=== PATIENT | male | born 1940 | race Caucasian/White ===

== ENCOUNTER 2017-11-15 20:15 | Inpatient (IN) | payer MEDICARE, BC ==
--- NOTE | 2017-11-15 21:23 | EDM.PDOC ---
ED HPI GENERAL MEDICAL PROBLEM - General Chief Complaint: Lower Extremity Injury/Pain Stated Complaint: FALL, HIP INJURY Time Seen by Provider: 11/15/17 20:33 Source of Information: Reports: Patient, Family History Limitations: Reports: No Limitations - History of Present Illness INITIAL COMMENTS - FREE TEXT/NARRATIVE: Pt's states pt. was pulling a floor john backward today and the handle came out and pt. fell on left hip. Now pt. c/o left hip pain that is worsened with movement or weight bearing. History of left THR and previous left pelvic fracture. Onset: Today, Sudden Onset Date: 11/15/17 Onset Time: 19:00 Duration: Hour(s):, Constant Location: Reports: Lower Extremity, Left (left hip pain) Quality: Reports: Ache Severity: Mild Improves with: Reports: Rest Worsens with: Reports: Movement Associated Symptoms: Reports: No Other Symptoms Treatments WET MIXER: Reports: Other (see below) (none) Left Hip Pain Score (Numeric/FACES): 3 - Related Data Allergies Allergy/AdvReac Type Severity Reaction Status Date / Time No Known Allergies Allergy Verified 11/15/17 20:18 Home Meds: Home Meds Aspirin [Low Dose Aspirin EC] 81 mg PO DAILY 06/21/14 [History] Bisoprolol/Hydrochlorothiazide [Bisoprolol/HCTZ 5-6.25 MG] 1 tab PO DAILY [History] Cinnamon Bark [Cinnamon] 1,000 mg PO BID 06/21/14 [History] Folic Acid 0.4 mg PO DAILY 06/21/14 [History] Hydrochlorothiazide 25 mg PO DAILY 06/21/14 [History] Quinapril HCl 20 mg PO BID 06/21/14 [History] Simvastatin 10 mg PO DAILY 06/21/14 [History] amLODIPine [Norvasc] 5 mg PO DAILY 06/21/14 [History] cloNIDine [Catapres] 0.1 mg PO BEDTIME 06/21/14 [History] levETIRAcetam [Levetiracetam] 750 mg PO BID 06/21/14 [History] metFORMIN [Glucophage] 500 mg PO BID 06/21/14 [History] Insulin Detemir [Levemir Flextouch] 14 unit SQ QPM 11/15/17 [History] Cholecalciferol (Vitamin D3) [Vitamin D3] 5,000 units PO DAILY 11/16/17 [History ] Magnesium 250 mg PO DAILY 11/16/17 [History] Past Medical History Cardiovascular History: Reports: Hypertension Neurological History: Reports: CVA, Seizure Endocrine/Metabolic History: Reports: Diabetes, Type II Social & Family History - Family History Family Medical History: Noncontributory - Tobacco Use Smoking Status *Q: Unknown Ever Smoked Review of Systems - Review of Systems Review Of Systems: See Below Constitutional: Reports: Weakness Eyes: Reports: No Symptoms Ears: Reports: No Symptoms Nose: Reports: No Symptoms Mouth/Throat: Reports: No Symptoms Respiratory: Reports: No Symptoms Cardiovascular: Reports: No Symptoms GI/Abdominal: Reports: No Symptoms Genitourinary: Reports: No Symptoms Musculoskeletal: Reports: Leg Pain, Other (left hip pain) Neurological: Reports: No Symptoms Psychiatric: Reports: No Symptoms ED EXAM, GENERAL - Physical Exam Exam: See Below Exam Limited By: No Limitations General Appearance: Alert, WD/WN, No Apparent Distress Eye Exam: Bilateral Eye: EOMI, PERRL Nose: Normal Inspection, Normal Mucosa, No Blood Throat/Mouth: Normal Inspection, Normal Lips, Normal Teeth Head: Atraumatic, Normocephalic Neck: Normal Inspection, Supple, Non-Tender, Full Range of Motion Respiratory/Chest: No Respiratory Distress, Lungs Clear, Normal Breath Sounds, No Accessory Muscle Use, Chest Non-Tender Cardiovascular: Normal Peripheral Pulses, Regular Rate, Rhythm, No Edema, No JVD , No Murmur, No Rub GI/Abdominal: Normal Bowel Sounds, Soft, Non-Tender, No Organomegaly, No Distention, No Mass, Pelvis Stable (Male) Exam: Deferred Rectal (Males) Exam: Deferred Back Exam: Normal Inspection Extremities: Normal Inspection, Normal Capillary Refill, Pedal Edema, Limited Range of Motion (limited ability to fully straighten left hip; able to flex left hip; unable to fully extend left knee but states has been that way since CVA; neurovascular is intact; able to dorsiflex left foot), Other (no pelvic/ hip deformity on exam) Neurological: Alert, Oriented, CN II-XII Intact, Normal Cognition Psychiatric: Normal Affect, Normal Mood Skin Exam: Warm, Dry, Intact, Normal Color, No Rash Course - Vital Signs Last Recorded V/S: Last Vital Signs Temp 37.0 C 11/16/17 07:42 Pulse 94 11/16/17 07:42 Resp 20 11/16/17 07:42 BP 129/88 11/16/17 07:42 Pulse Ox 95 11/16/17 07:42 - Orders/Labs/Meds Orders: Active Orders 24 hr Category Date Time Status Vital Signs [RC] 0800,1600,0000 Care 11/15/17 22:23 Active Consistent Carbohydrate Diet (Diabetic) [Consistent Diet 11/16/17 Breakfast Active Carbohydrate Diet] [DIET] URINALYSIS W/MICROSCOPIC [UA W/MICROSCOPIC] [URIN] Stat Lab 11/15/17 21:00 Ordered Acetaminophen [Tylenol] Med 11/15/17 22:22 Active 650 mg PO Q6H PRN Enoxaparin [Lovenox] Med 11/16/17 08:00 Active 40 mg SUBCUT Q24H ENRRIQUE Hose [Antiembolic Hose] [OM.PC] Routine Oth 11/15/17 22:24 Ordered Code Status [Resuscitation Status] Stat Resus Stat 11/15/17 22:39 Ordered Medication Orders Acetaminophen (Tylenol) 650 mg PO Q6H PRN PRN Reason: Pain Aspirin (Halfprin) 81 mg PO DAILY [facility] Last Admin: 11/16/17 08:37 Dose: 81 mg Clonidine HCl (Catapres) 0.1 mg PO BEDTIME [facility] Enoxaparin Sodium (Lovenox) 40 mg SUBCUT Q24H [facility] Last Admin: 11/16/17 08:40 Dose: 40 mg Hydrochlorothiazide (Hydrochlorothiazide) 25 mg PO DAILY [facility] Last Admin: 11/16/17 08:37 Dose: 25 mg Insulin Detemir (Levemir) 14 unit SUBCUT BEDTIME [facility] Last Admin: 11/15/17 23:37 Dose: 14 units Magnesium Oxide (Magnesium Oxide) 250 mg PO DAILY [facility] Last Admin: 11/16/17 08:37 Dose: 250 mg [facility] Admin: 11/16/17 08:37 Dose: 500 mg Bisoprolol/Hydrochlorothiazide [Bisoprolol/Hctz 5-6 .25 MgOwn Med 1 tab PO DAILY [facility] Last Admin: 11/16/17 08:37 Dose: 1 tab Cinnamon Bark [ Cinnamon] 1,000 Mg Own Med 1,000 mg PO BID [facility] Last Admin: 11/16/17 08:37 Dose: 1,000 mg Folic Acid 400mcg (Own Med) 1 each PO DAILY [facility] Last Admin: 11/16/17 08:38 Dose: 1 each Amlodipine 5mgOwn (Med) 1 each PO DAILY [facility] Last Admin: 11/16/17 08:38 Dose: 1 each Cholecalciferol 5000 (UnitsOwn Med) 1 each PO DAILY [facility] Last Admin: 11/16/17 08:38 Dose: 1 each Quinapril 40mg Own (Med) 1 each PO BID [facility] Last Admin: 11/16/17 08:38 Dose: 1 each Levetiracetam 750 Mg (TabOwn Med) 1 each PO BID [facility] Last Admin: 11/16/17 08:38 Dose: 1 each Simvastatin (Zocor) 10 mg PO DAILY [facility] Last Admin: 11/16/17 08:38 Dose: 10 mg Labs: Laboratory Tests 11/15/17 11/15/17 11/15/17 Range/Units 21:00 21:10 21:10 WBC 12.7 H (5.0-10.0) 10^3/uL RBC 5.18 (4.50-6.00) 10^6/uL Hgb 15.3 (14.0-18.0) g/dL Hct 44.4 (40.0-54.0) % MCV 85.7 (82.0-94.0) fL MCH 29.5 (27.0-32.0) pg MCHC 34.5 (33.0-38.0) g/dL RDW Coeff of Alycia 12.9 (11.0-15.0) % Plt Count 233 (150-400) 10^3/uL Neut % (Auto) 81.9 (35-85) % Lymph % (Auto) 9.4 L (10-55) % [place] % (Auto) 7.7 (0-16) % Eos % (Auto) 0.8 (0-5) % Baso % (Auto) 0.2 (0-3) % Neut # (Auto) 10.41 H (1.80-7.00) 10^3/uL Lymph # (Auto) 1.20 (1.00-4.80) 10^3/uL [place] # (Auto) 0.98 H (0.00-0.80) 10^3/uL Eos # (Auto) 0.10 (0.00-0.45) 10^3/uL Baso # (Auto) 0.03 10^3/uL Sodium 142 (136-145) mEq/L Potassium 3.4 L (3.5-5.0) mEq/L Chloride 102 (98-106) mEq/L Carbon Dioxide 28 (21-32) mmol/L BUN 14 (7-18) mg/dL Creatinine 0.9 (0.7-1.3) mg/dL Est Cr Clr Drug Dosing 87.07 mL/min Estimated GFR (MDRD) > 60 (>=60) mL/min Glucose 195 H D (75-99) mg/dL Calcium 9.1 (8.4-10.1) mg/dL Total Bilirubin 0.6 (0.0-1.0) mg/dL AST 24 (15-37) U/L ALT 29 (12-78) U/L Alkaline Phosphatase 108 (46-116) U/L Total Protein 7.2 (6.4-8.2) g/dL Albumin 3.6 (3.4-5.0) g/dL Urine Color Yellow (YELLOW) Urine Appearance Clear (CLEAR) Urine pH 7.0 (4.5-8.0) Ur Specific [place] 1.025 H (1.003-1.020) Urine Protein 100 H (NEGATIVE) mg/dL Urine Glucose (UA) 250 H (NEGATIVE) mg/dL Urine Ketones 15 H (NEGATIVE) mg/dL Urine Occult Blood Trace-intact H (NEGATIVE) Urine Nitrite Negative (NEGATIVE) Urine Bilirubin Negative (NEGATIVE) Urine Urobilinogen 0.2 (0.2-1.0) EU/dL Ur Leukocyte Esterase Negative (NEGATIVE) Urine RBC 0-5 (0-5) /HPF Urine WBC 0-5 (0-5) /HPF Ur Squamous Epith Cells Occasional H (NOT SEEN) /HPF Urine Bacteria Rare (NOT SEEN) /HPF Meds: Medications Generic Name Dose Route Start Last Admin Trade Name Freq PRN Reason Stop Dose Admin Acetaminophen 650 mg 11/15/17 22:22 Tylenol PO Q6H PRN Pain Aspirin 81 mg 11/16/17 08:00 11/16/17 08:37 Halfprin PO 81 mg DAILY [facility] Administration Clonidine HCl 0.1 mg 11/16/17 20:00 Catapres PO BEDTIME [facility] Enoxaparin Sodium 40 mg 11/16/17 08:00 11/16/17 08:40 Lovenox SUBCUT 40 mg Q24H [facility] Administration Hydrochlorothiazide 25 mg 11/16/17 08:00 11/16/17 08:37 Hydrochlorothiazide PO 25 mg DAILY [facility] Administration Insulin Detemir 14 unit 11/15/17 22:56 11/15/17 23:37 Levemir SUBCUT 14 units BEDTIME [facility] Administration Magnesium Oxide 250 mg 11/16/17 08:00 11/16/17 08:37 Magnesium Oxide PO 250 mg DAILY [facility] Administration Metformin HCl 500 mg 11/16/17 08:00 11/16/17 08:37 Glucophage PO 500 mg BIDMEALS [facility] Administration Bisoprolol/ 1 tab 11/16/17 08:00 11/16/17 08:37 Hydrochlorothiazide PO 1 tab [Bisoprolol/Hctz 5-6 DAILY [facility] Administration .25 MgOwn Med Cinnamon Bark [ 1,000 mg 11/16/17 08:00 11/16/17 08:37 Cinnamon] 1,000 Mg PO 1,000 mg Own Med BID [facility] Administration Folic Acid 400mcg 1 each 11/16/17 08:00 11/16/17 08:38 Own Med PO 1 each DAILY [facility] Administration Amlodipine 5mgOwn 1 each 11/16/17 08:00 11/16/17 08:38 Med PO 1 each DAILY [facility] Administration Cholecalciferol 5000 1 each 11/16/17 08:00 11/16/17 08:38 UnitsOwn Med PO 1 each DAILY [facility] Administration Quinapril 40mg Own 1 each 11/16/17 08:00 11/16/17 08:38 Med PO 1 each BID [facility] Administration Levetiracetam 750 Mg 1 each 11/16/17 08:00 11/16/17 08:38 TabOwn Med PO 1 each BID [facility] Administration Simvastatin 10 mg 11/16/17 08:00 11/16/17 08:38 Zocor PO 10 mg DAILY [facility] Administration Discontinued Medications Generic Name Dose Route Start Last Admin Trade Name Evangelistaq PRN Reason Stop Dose Admin Amlodipine 5mgOwn 5 each 11/16/17 08:00 Med PO DAILY [facility] Cholecalciferol 5000 5,000 each 11/16/17 08:00 UnitsOwn Med PO DAILY [facility] Folic Acid 400mcg 0.4 each 11/16/17 08:00 Own Med PO DAILY [facility] Levetiracetam 750 Mg 750 each 11/16/17 08:00 TabOwn Med PO BID [facility] Quinapril 40mg Own 20 each 11/16/17 08:00 Med PO BID [facility] - Radiology Interpretation Free Text/Narrative:: Acute nondisplaced fractures involving superior and inferior pubic rami on the left; unremarkable left hip arthroplasty. Alignment remains anatomic. - Re-Assessments/Exams Free Text/Narrative Re-Assessment/Exam: Consulted with Dr. Dominguez, orthopedics via phone and discussed case. Dr. Dominguez states pt. will not need surgery but recommends PWB on left LE and outpatient follow up in 2 weeks. 11/15/17 22:15 Departure - Departure Time of Disposition: 22:40 Disposition: Refer to Observation Condition: Good Clinical Impression: Fracture of pelvis, HTN, Essential hypertension, Diabetes mellitus, Hypokalemia - Discharge Information - Problem List & Annotations (1) Pelvic fracture SNOMED Code(s): 57599252 Code(s): S32.9XXA - FRACTURE OF UNSP PARTS OF LUMBOSACRAL SPINE AND PELVIS, INIT Status: Acute Current Visit: Yes Onset Date: ~11/15/17 Qualifiers: Encounter type: initial encounter Pelvic bone location: pubis Sublocation of pubis: unspecified portion of pubis Fracture type: closed Laterality: left Qualified Code(s): S32.502A - Unspecified fracture of left pubis, initial encounter for closed fracture (2) HTN (hypertension) SNOMED Code(s): 26915834 Code(s): I10 - ESSENTIAL (PRIMARY) HYPERTENSION Status: Acute Priority: High Current Visit: Yes (3) Diabetes mellitus SNOMED Code(s): 32553105 Code(s): E11.9 - TYPE 2 DIABETES MELLITUS WITHOUT COMPLICATIONS Status: Chronic Priority: High Current Visit: Yes - Problem List Review Problem List Initiated/Reviewed/Updated: Yes - My Orders Last 24 Hours: My Active Orders 11/15/17 21:00 URINALYSIS W/MICROSCOPIC [UA W/MICROSCOPIC] [URIN] Stat 11/15/17 22:22 Acetaminophen [Tylenol] 650 mg PO Q6H PRN 11/15/17 22:23 Vital Signs [RC] 0800,1600,0000 11/15/17 22:24 ENRRIQUE Hose [Antiembolic Hose] [OM.PC] Routine 11/15/17 22:39 Code Status [Resuscitation Status] Stat 11/16/17 08:00 Enoxaparin [Lovenox] 40 mg SUBCUT Q24H 11/16/17 Breakfast Consistent Carbohydrate Diet (Diabetic) [Consistent Carbohydrate Diet] [DIET] - Assessment/Plan Admission H&P: Please use this note as an admission H&P Last 24 Hours: My Active Orders 11/15/17 21:00 URINALYSIS W/MICROSCOPIC [UA W/MICROSCOPIC] [URIN] Stat 11/15/17 22:22 Acetaminophen [Tylenol] 650 mg PO Q6H PRN 11/15/17 22:23 Vital Signs [RC] 0800,1600,0000 11/15/17 22:24 ENRRIQUE Hose [Antiembolic Hose] [OM.PC] Routine 11/15/17 22:39 Code Status [Resuscitation Status] Stat 11/16/17 08:00 Enoxaparin [Lovenox] 40 mg SUBCUT Q24H 11/16/17 Breakfast Consistent Carbohydrate Diet (Diabetic) [Consistent Carbohydrate Diet] [DIET] Assessment:: Acute nondisplaced fracture of superior and inferior pubic rami on the left, impaired mobility, gait and ADL's --consult PT, OT --PWB on left LE --pt. will likely need admission to obervation and then swing bed or SNF due to impaired mobility, gait, and ADL's. Plan: Admit to observation Patient and refused transfer to ortho at this time. Patient refuses pain medication. Will reevaluate and discuss further plans tomorrow. Acute nondisplaced fracture of superior and inferior pubic rami on the left, impaired mobility, gait and ADL's --consult PT --PWB on left LE HTN --continue home meds, monitor BP DM --continue home meds, monitor blood sugar DVT prophy: --Lovenox 40 mg subq daily
[2017-11-15 21:29] LABS: CHLORIDE,CL 102 mEq/L (98-106); SODIUM,NA 142 mEq/L (136-145)
[2017-11-15] MEDS ORDERED: Acetaminophen 325 MG Tab PO PRN (22:22)
[2017-11-15] MEDS: Insulin Detemir 100 Units/ML 3 ML Pen SUBCUT SCH (23:37)
[2017-11-16] MEDS ORDERED: CHOLECALCIFEROL 5000 UNIT PO SCH ×2 (08:00)
[2017-11-16] MEDS ORDERED: LEVETIRACETAM 750 MG PO SCH ×2 (08:00)
[2017-11-16] MEDS ORDERED: QUINAPRIL 40 MG PO SCH ×2 (08:00)
[2017-11-16] MEDS ORDERED: FOLIC ACID 400 MCG PO SCH ×2 (08:00)
[2017-11-16] MEDS ORDERED: AMLODIPINE 5 MG PO SCH ×2 (08:00)
[2017-11-16 08:07] LABS: CHLORIDE,CL 104 mEq/L (98-106); SODIUM,NA 141 mEq/L (136-145)
[2017-11-16] MEDS: BISOPROLOL PO SCH (08:37)
[2017-11-16] MEDS: Hydrochlorothiazide 25 MG Tab PO SCH (08:37)
[2017-11-16] MEDS: CINNAMON BARK 1000 MG PO SCH ×2 (08:37→20:03)
[2017-11-16] MEDS: metFORMIN 500 MG Tab PO SCH ×2 (08:37→17:24)
[2017-11-16] MEDS: HYDROCHLOROTHIAZIDE PO SCH (08:37)
[2017-11-16] MEDS: Simvastatin 10 MG Tab PO SCH (08:38)
[2017-11-16] MEDS: Enoxaparin 40 MG/0.4 ML Syringe SUBCUT SCH (08:40)
--- NOTE | 2017-11-16 14:06 | PCM.PN ---
- General Info Date of Service: 11/16/17 Admission Dx/Problem (Free Text): Vulnerable adult due to PWB and impaired mobility/ gait/ ADL's, and transfers. At risk for falls/ injury and skin breakdown. Left side pelvic fracture, impaired mobility/ gait/ ADL's and transfers. Subjective Update: 77 year male admitted to hospital after falling and having a left side pelvic fracture last night. Denies any current pain. Pt. transferred from bed to chair with max assist x 3. Discussed at length patient going to SNF for physical therapy versus going home with home health and PT. Functional Status: Reports: Pain Controlled, Tolerating Diet, Urinating Pain Score: 0 - Review of Systems General: Reports: No Symptoms HEENT: Reports: No Symptoms Pulmonary: Reports: No Symptoms Cardiovascular: Reports: No Symptoms Gastrointestinal: Reports: No Symptoms Genitourinary: Reports: No Symptoms Musculoskeletal: Reports: No Symptoms Skin: Reports: No Symptoms Neurological: Reports: No Symptoms Psychiatric: Reports: No Symptoms - Patient Data Vitals - Most Recent: Last Vital Signs Temp 37.0 C 11/16/17 07:42 Pulse 94 11/16/17 07:42 Resp 20 11/16/17 07:42 BP 129/88 11/16/17 07:42 Pulse Ox 95 11/16/17 07:42 Weight - Most Recent: 96.978 kg Lab Results Last 24 Hours: Laboratory Results - last 24 hr 11/15/17 11/15/17 11/15/17 Range/Units 21:00 21:10 21:10 WBC 12.7 H (5.0-10.0) 10^3/uL RBC 5.18 (4.50-6.00) 10^6/uL Hgb 15.3 (14.0-18.0) g/dL Hct 44.4 (40.0-54.0) % MCV 85.7 (82.0-94.0) fL MCH 29.5 (27.0-32.0) pg MCHC 34.5 (33.0-38.0) g/dL RDW Coeff of Alycia 12.9 (11.0-15.0) % Plt Count 233 (150-400) 10^3/uL Neut % (Auto) 81.9 (35-85) % Lymph % (Auto) 9.4 L (10-55) % [place] % (Auto) 7.7 (0-16) % Eos % (Auto) 0.8 (0-5) % Baso % (Auto) 0.2 (0-3) % Neut # (Auto) 10.41 H (1.80-7.00) 10^3/uL Lymph # (Auto) 1.20 (1.00-4.80) 10^3/uL [place] # (Auto) 0.98 H (0.00-0.80) 10^3/uL Eos # (Auto) 0.10 (0.00-0.45) 10^3/uL Baso # (Auto) 0.03 10^3/uL PT (9.7-12.3) SEC INR (0.92-1.18) APTT (23.2-32.3) SEC Sodium 142 (136-145) mEq/L Potassium 3.4 L (3.5-5.0) mEq/L Chloride 102 (98-106) mEq/L Carbon Dioxide 28 (21-32) mmol/L BUN 14 (7-18) mg/dL Creatinine 0.9 (0.7-1.3) mg/dL Est Cr Clr Drug Dosing 87.07 mL/min Estimated GFR (MDRD) > 60 (>=60) mL/min Glucose 195 H D (75-99) mg/dL Calcium 9.1 (8.4-10.1) mg/dL Total Bilirubin 0.6 (0.0-1.0) mg/dL AST 24 (15-37) U/L ALT 29 (12-78) U/L Alkaline Phosphatase 108 (46-116) U/L Total Protein 7.2 (6.4-8.2) g/dL Albumin 3.6 (3.4-5.0) g/dL Urine Color Yellow (YELLOW) Urine Appearance Clear (CLEAR) Urine pH 7.0 (4.5-8.0) Ur Specific [place] 1.025 H (1.003-1.020) Urine Protein 100 H (NEGATIVE) mg/dL Urine Glucose (UA) 250 H (NEGATIVE) mg/dL Urine Ketones 15 H (NEGATIVE) mg/dL Urine Occult Blood Trace-intact H (NEGATIVE) Urine Nitrite Negative (NEGATIVE) Urine Bilirubin Negative (NEGATIVE) Urine Urobilinogen 0.2 (0.2-1.0) EU/dL Ur Leukocyte Esterase Negative (NEGATIVE) Urine RBC 0-5 (0-5) /HPF Urine WBC 0-5 (0-5) /HPF Ur Squamous Epith Cells Occasional H (NOT SEEN) /HPF Urine Bacteria Rare (NOT SEEN) /HPF 11/16/17 11/16/17 11/16/17 Range/Units 07:50 07:50 07:50 WBC 10.3 H (5.0-10.0) 10^3/uL RBC 4.59 (4.50-6.00) 10^6/uL Hgb 13.5 L (14.0-18.0) g/dL Hct 39.7 L (40.0-54.0) % MCV 86.5 (82.0-94.0) fL MCH 29.4 (27.0-32.0) pg MCHC 34.0 (33.0-38.0) g/dL RDW Coeff of Alycia 12.8 (11.0-15.0) % Plt Count 216 (150-400) 10^3/uL Neut % (Auto) 76.0 (35-85) % Lymph % (Auto) 13.6 (10-55) % [place] % (Auto) 8.7 (0-16) % Eos % (Auto) 1.5 (0-5) % Baso % (Auto) 0.2 (0-3) % Neut # (Auto) 7.85 H (1.80-7.00) 10^3/uL Lymph # (Auto) 1.41 (1.00-4.80) 10^3/uL [place] # (Auto) 0.90 H (0.00-0.80) 10^3/uL Eos # (Auto) 0.15 (0.00-0.45) 10^3/uL Baso # (Auto) 0.02 10^3/uL PT 10.4 (9.7-12.3) SEC INR 1.00 (0.92-1.18) APTT 28.5 (23.2-32.3) SEC Sodium 141 (136-145) mEq/L Potassium 3.4 L (3.5-5.0) mEq/L Chloride 104 (98-106) mEq/L Carbon Dioxide 27 (21-32) mmol/L BUN 16 (7-18) mg/dL Creatinine 0.8 (0.7-1.3) mg/dL Est Cr Clr Drug Dosing 97.95 mL/min Estimated GFR (MDRD) > 60 (>=60) mL/min Glucose 173 H (75-99) mg/dL Calcium 8.8 (8.4-10.1) mg/dL Total Bilirubin (0.0-1.0) mg/dL AST (15-37) U/L ALT (12-78) U/L Alkaline Phosphatase (46-116) U/L Total Protein (6.4-8.2) g/dL Albumin (3.4-5.0) g/dL Urine Color (YELLOW) Urine Appearance (CLEAR) Urine pH (4.5-8.0) Ur Specific [place] (1.003-1.020) Urine Protein (NEGATIVE) mg/dL Urine Glucose (UA) (NEGATIVE) mg/dL Urine Ketones (NEGATIVE) mg/dL Urine Occult Blood (NEGATIVE) Urine Nitrite (NEGATIVE) Urine Bilirubin (NEGATIVE) Urine Urobilinogen (0.2-1.0) EU/dL Ur Leukocyte Esterase (NEGATIVE) Urine RBC (0-5) /HPF Urine WBC (0-5) /HPF Ur Squamous Epith Cells (NOT SEEN) /HPF Urine Bacteria (NOT SEEN) /HPF Med Orders - Current: Current Medications Acetaminophen (Tylenol) 650 mg PO Q6H PRN PRN Reason: Pain Aspirin (Halfprin) 81 mg PO DAILY [facility] Last Admin: 11/16/17 08:37 Dose: 81 mg Clonidine HCl (Catapres) 0.1 mg PO BEDTIME [facility] Enoxaparin Sodium (Lovenox) 40 mg SUBCUT Q24H [facility] Last Admin: 11/16/17 08:40 Dose: 40 mg Hydrochlorothiazide (Hydrochlorothiazide) 25 mg PO DAILY [facility] Last Admin: 11/16/17 08:37 Dose: 25 mg Insulin Detemir (Levemir) 14 unit SUBCUT BEDTIME [facility] Last Admin: 11/15/17 23:37 Dose: 14 units Magnesium Oxide (Magnesium Oxide) 250 mg PO DAILY [facility] Last Admin: 11/16/17 08:37 Dose: 250 mg Metformin HCl (Glucophage) 500 mg PO BIDMEALS [facility] Last Admin: 11/16/17 08:37 Dose: 500 mg Bisoprolol/Hydrochlorothiazide [Bisoprolol/Hctz 5-6 .25 MgOwn Med 1 tab PO DAILY [facility] Last Admin: 11/16/17 08:37 Dose: 1 tab Cinnamon Bark [ Cinnamon] 1,000 Mg Own Med 1,000 mg PO BID [facility] Last Admin: 11/16/17 08:37 Dose: 1,000 mg Folic Acid 400mcg (Own Med) 1 each PO DAILY [facility] Last Admin: 11/16/17 08:38 Dose: 1 each Amlodipine 5mgOwn (Med) 1 each PO DAILY [facility] Last Admin: 11/16/17 08:38 Dose: 1 each Cholecalciferol 5000 (UnitsOwn Med) 1 each PO DAILY [facility] Last Admin: 11/16/17 08:38 Dose: 1 each Quinapril 40mg Own (Med) 1 each PO BID [facility] Last Admin: 11/16/17 08:38 Dose: 1 each Levetiracetam 750 Mg (TabOwn Med) 1 each PO BID [facility] Last Admin: 11/16/17 08:38 Dose: 1 each Simvastatin (Zocor) 10 mg PO DAILY [facility] Last Admin: 11/16/17 08:38 Dose: 10 mg Discontinued Medications Amlodipine 5mgOwn (Med) 5 each PO DAILY [facility] Cholecalciferol 5000 (UnitsOwn Med) 5,000 each PO DAILY [facility] Folic Acid 400mcg (Own Med) 0.4 each PO DAILY [facility] Levetiracetam 750 Mg (TabOwn Med) 750 each PO BID [facility] Quinapril 40mg Own (Med) 20 each PO BID [facility] - Exam Quality Assessment: DVT Prophylaxis General: Alert, Oriented, Cooperative HEENT: Pupils Equal, Pupils Reactive, EOMI, Mucous Membr. Moist/[place] Neck: Supple, Trachea Midline Lungs: Clear to Auscultation, Normal Respiratory Effort Cardiovascular: Regular Rate, Regular Rhythm, No Murmurs GI/Abdominal Exam: Normal Bowel Sounds, Soft, Non-Tender, No Organomegaly, No Distention, No Mass (Male) Exam: Deferred Back Exam: Normal Inspection Extremities: Normal Inspection, No Pedal Edema, Limited Range of Motion ( decreased AROM left LE; able to dorsiflex foot and flex hip minimally. Unable to ambulate), Other (requires max assist x 3 for transfers; unable to ambulate. decreased AROM and strength.) Skin: Warm, Dry, Intact Neurological: No New Focal Deficit Psy/Mental Status: Alert, Normal Affect, Normal Mood - Problem List & Annotations (1) Pelvic fracture SNOMED Code(s): 87378183 Code(s): S32.9XXA - FRACTURE OF UNSP PARTS OF LUMBOSACRAL SPINE AND PELVIS, INIT Status: Acute Current Visit: Yes Onset Date: ~11/15/17 Qualifiers: Encounter type: initial encounter Pelvic bone location: pubis Sublocation of pubis: unspecified portion of pubis Fracture type: closed Laterality: left Qualified Code(s): S32.502A - Unspecified fracture of left pubis, initial encounter for closed fracture (2) HTN (hypertension) SNOMED Code(s): 69886687 Code(s): I10 - ESSENTIAL (PRIMARY) HYPERTENSION Status: Acute Priority: High Current Visit: Yes (3) Diabetes mellitus SNOMED Code(s): 66468300 Code(s): E11.9 - TYPE 2 DIABETES MELLITUS WITHOUT COMPLICATIONS Status: Chronic Priority: High Current Visit: Yes - Problem List Review Problem List Initiated/Reviewed/Updated: Yes - My Orders Last 24 Hours: My Active Orders 11/15/17 21:00 URINALYSIS W/MICROSCOPIC [UA W/MICROSCOPIC] [URIN] Stat 11/15/17 22:22 Acetaminophen [Tylenol] 650 mg PO Q6H PRN 11/15/17 22:23 Vital Signs [RC] 0800,1600,0000 11/15/17 22:24 ENRRIQUE Hose [Antiembolic Hose] [OM.PC] Routine 11/15/17 22:39 Code Status [Resuscitation Status] Stat 11/15/17 22:47 Weight bearing status [OM.PC] Routine 11/15/17 22:48 PT Evaluation and Treatment [CONS] Routine 11/15/17 22:56 Insulin Detemir [Levemir] 14 unit SUBCUT BEDTIME 11/16/17 06:40 Blood Glucose Check, Bedside [RC] 0730,1700 11/16/17 08:00 Aspirin [Halfprin] 81 mg PO DAILY Bisoprolol/Hydrochlorothiazide [Bisoprolol/HCTZ 5-6.25 MG] 1 tab PO DAILY Cinnamon Bark [Cinnamon] 1,000 mg PO BID Enoxaparin [Lovenox] 40 mg SUBCUT Q24H Hydrochlorothiazide 25 mg PO DAILY Magnesium Oxide 250 mg PO DAILY Non-Formulary Medication [NF Drug] 1 each PO BID Non-Formulary Medication [NF Drug] 1 each PO BID Non-Formulary Medication [NF Drug] 1 each PO DAILY Non-Formulary Medication [NF Drug] 1 each PO DAILY Non-Formulary Medication [NF Drug] 1 each PO DAILY Simvastatin [Zocor] 10 mg PO DAILY metFORMIN [Glucophage] 500 mg PO BIDMEALS 11/16/17 20:00 cloNIDine [Catapres] 0.1 mg PO BEDTIME 11/16/17 Breakfast Consistent Carbohydrate Diet (Diabetic) [Consistent Carbohydrate Diet] [DIET] - Assessment Assessment:: Vulnerable adult secondary to impaired mobility/ gait/ ADL's and s/p CVA. Risk for falls. Left superior and inferior pubic rami fracture, PWB. s/p CVA with mobility, gait, and balance/ coordination deficits. HTN DM HL - Plan Plan:: Pt. inpatient and will require PT for mobility, gait, and transfers. Pt. is at risk for falls/ injury. swing bed versus SNF with PT. Case management and dispo planning pending.
[2017-11-16] MEDS: cloNIDine 0.1 MG Tab PO SCH (20:01)
[2017-11-16] MEDS: levETIRAcetam 500 MG Tab PO SCH (20:02)
[2017-11-16] MEDS: Insulin Detemir 100 Units/ML 3 ML Pen SUBCUT SCH (20:03)
[2017-11-17] MEDS: Enoxaparin 40 MG/0.4 ML Syringe SUBCUT SCH (07:44)
[2017-11-17] MEDS: Cholecalciferol (Vitamin D3) 1,000 Unit Tab PO SCH (07:44)
[2017-11-17] MEDS: levETIRAcetam 500 MG Tab PO SCH ×2 (07:44→19:42)
[2017-11-17] MEDS: Folic Acid 1 MG Tab PO SCH (07:45)
[2017-11-17] MEDS: Simvastatin 10 MG Tab PO SCH (07:45)
[2017-11-17] MEDS: amLODIPine 2.5 MG Tab PO SCH (07:45)
[2017-11-17] MEDS: metFORMIN 500 MG Tab PO SCH ×2 (07:46→17:34)
[2017-11-17] MEDS: Hydrochlorothiazide 25 MG Tab PO SCH (07:46)
[2017-11-17] MEDS: BISOPROLOL PO SCH (07:47)
[2017-11-17] MEDS: HYDROCHLOROTHIAZIDE PO SCH (07:47)
[2017-11-17] MEDS: CINNAMON BARK 1000 MG PO SCH ×2 (07:49→19:41)
[2017-11-17] MEDS: Lisinopril 20 MG Tab PO SCH (07:50)
--- NOTE | 2017-11-17 11:46 | PN ---
DATE: 11/17/2017 S: Long Van is in with a pelvic ring fracture, inferior and superior rami on the left side I believe. On examination, the patient is very comfortable, poor range of motion because of the stroke. ASSESSMENT: PELVIC FRACTURE. P: Continue physical therapy. Pain control if needed. SHANNON/ABDULKADIR /[id number]
[2017-11-17] MEDS: cloNIDine 0.1 MG Tab PO SCH (19:41)
[2017-11-17] MEDS: Insulin Detemir 100 Units/ML 3 ML Pen SUBCUT SCH (19:43)
[2017-11-18] MEDS: CINNAMON BARK 1000 MG PO SCH ×2 (07:22→19:27)
[2017-11-18] MEDS: Folic Acid 1 MG Tab PO SCH (07:23)
[2017-11-18] MEDS: metFORMIN 500 MG Tab PO SCH ×2 (07:23→17:20)
[2017-11-18] MEDS: Hydrochlorothiazide 25 MG Tab PO SCH (07:24)
[2017-11-18] MEDS: levETIRAcetam 500 MG Tab PO SCH ×2 (07:25→19:27)
[2017-11-18] MEDS: Enoxaparin 40 MG/0.4 ML Syringe SUBCUT SCH (07:26)
[2017-11-18] MEDS: amLODIPine 2.5 MG Tab PO SCH (07:27)
[2017-11-18] MEDS: Cholecalciferol (Vitamin D3) 1,000 Unit Tab PO SCH (07:28)
[2017-11-18] MEDS: Simvastatin 10 MG Tab PO SCH (07:28)
[2017-11-18] MEDS: Lisinopril 20 MG Tab PO SCH (07:28)
[2017-11-18] MEDS: HYDROCHLOROTHIAZIDE PO SCH (07:30)
[2017-11-18] MEDS: BISOPROLOL PO SCH (07:30)
--- NOTE | 2017-11-18 08:12 | PCM.PN ---
- General Info Date of Service: 11/18/17 Admission Dx/Problem (Free Text): Vulnerable adult due to PWB and impaired mobility/ gait/ ADL's, and transfers. At risk for falls/ injury and skin breakdown. Left side pelvic fracture, impaired mobility/ gait/ ADL's and transfers. Subjective Update: Patient reports he is feeling well. He reports his pain is well controlled. He is requiring assistance with the EZ stand for transfers. Nursing staff reports he does get anxious with transfers. He does report that he has not had a BM since admission on Friday. Patient does not offer any complaints this morning. Functional Status: Reports: Pain Controlled, Tolerating Diet, Ambulating, Urinating. Denies: New Symptoms - Review of Systems General: Reports: Weakness Pulmonary: Reports: No Symptoms Cardiovascular: Reports: No Symptoms Gastrointestinal: Reports: Constipation. Denies: Abdominal Pain, Decreased Appetite, Diarrhea, Nausea, Vomiting Genitourinary: Reports: No Symptoms Musculoskeletal: Reports: Joint Pain Skin: Reports: No Symptoms Neurological: Reports: No Symptoms Psychiatric: Reports: No Symptoms - Patient Data Vitals - Most Recent: Last Vital Signs Temp 97.4 F 11/18/17 07:36 Pulse 84 11/18/17 07:36 Resp 20 11/18/17 07:36 BP 167/99 H 11/18/17 07:36 Pulse Ox 96 11/18/17 07:36 Weight - Most Recent: 213 lb 12.8 oz Lab Results Last 24 Hours: Laboratory Results - last 24 hr 11/17/17 11/17/17 11/18/17 Range/Units 11:41 16:58 07:21 POC Glucose 266 H 265 H 180 H (75-105) mg/dl Med Orders - Current: Current Medications Acetaminophen (Tylenol) 650 mg PO Q6H PRN PRN Reason: Pain Amlodipine Besylate (Norvasc) 5 mg PO DAILY [facility] Last Admin: 11/18/17 07:27 Dose: 5 mg Aspirin (Halfprin) 81 mg PO DAILY [facility] Last Admin: 11/18/17 07:24 Dose: 81 mg Cholecalciferol (Vitamin D3) 5,000 units PO DAILY [facility] Last Admin: 11/18/17 07:28 Dose: 5,000 units Clonidine HCl (Catapres) 0.1 mg PO BEDTIME [facility] Last Admin: 11/17/17 19:41 Dose: 0.1 mg Enoxaparin Sodium (Lovenox) 40 mg SUBCUT Q24H [facility] Last Admin: 11/18/17 07:26 Dose: 40 mg Folic Acid (Folic Acid) 0.5 mg PO DAILY [facility] Last Admin: 11/18/17 07:23 Dose: 0.5 mg Hydrochlorothiazide (Hydrochlorothiazide) 25 mg PO DAILY [facility] Last Admin: 11/18/17 07:24 Dose: 25 mg Insulin Detemir (Levemir) 14 unit SUBCUT BEDTIME [facility] Last Admin: 11/17/17 19:43 Dose: 14 units Levetiracetam (Keppra) 750 mg PO BID [facility] Last Admin: 11/18/17 07:25 Dose: 750 mg Lisinopril (Prinivil) 20 mg PO DAILY [facility] Last Admin: 11/18/17 07:28 Dose: 20 mg Magnesium Oxide (Magnesium Oxide) 250 mg PO DAILY [facility] Last Admin: 11/18/17 07:27 Dose: 250 mg Metformin HCl (Glucophage) 500 mg PO BIDMEALS [facility] Last Admin: 11/18/17 07:23 Dose: 500 mg Bisoprolol/Hydrochlorothiazide [Bisoprolol/Hctz 5-6 .25 MgOwn Med 1 tab PO DAILY [facility] Last Admin: 11/18/17 07:30 Dose: 1 tab Cinnamon Bark [ Cinnamon] 1,000 Mg Own Med 1,000 mg PO BID [facility] Last Admin: 11/18/17 07:22 Dose: 1,000 mg Simvastatin (Zocor) 10 mg PO DAILY [facility] Last Admin: 11/18/17 07:28 Dose: 10 mg Discontinued Medications Amlodipine 5mgOwn (Med) 5 each PO DAILY [facility] Cholecalciferol 5000 (UnitsOwn Med) 5,000 each PO DAILY [facility] Folic Acid 400mcg (Own Med) 0.4 each PO DAILY [facility] Levetiracetam 750 Mg (TabOwn Med) 750 each PO BID [facility] Quinapril 40mg Own (Med) 20 each PO BID [facility] Folic Acid 400mcg (Own Med) 1 each PO DAILY [facility] Last Admin: 11/16/17 08:38 Dose: 1 each Amlodipine 5mgOwn (Med) 1 each PO DAILY [facility] Last Admin: 11/16/17 08:38 Dose: 1 each Cholecalciferol 5000 (UnitsOwn Med) 1 each PO DAILY [facility] Last Admin: 11/16/17 08:38 Dose: 1 each Quinapril 40mg Own (Med) 1 each PO BID [facility] Last Admin: 11/16/17 08:38 Dose: 1 each Levetiracetam 750 Mg (TabOwn Med) 1 each PO BID [facility] Last Admin: 11/16/17 08:38 Dose: 1 each - Exam General: Alert, Oriented, No Acute Distress Neck: Supple Lungs: Clear to Auscultation, Normal Respiratory Effort Cardiovascular: Regular Rate, Regular Rhythm GI/Abdominal Exam: Normal Bowel Sounds, Soft, Non-Tender, No Organomegaly, No Distention, No Abnormal Bruit, No Mass, Pelvis Stable Extremities: Normal Inspection, Normal Range of Motion (except flaccid RUE), Non -Tender, No Pedal Edema, Normal Capillary Refill Skin: Warm, Dry, Intact Neurological: No New Focal Deficit Psy/Mental Status: Alert, Normal Affect, Normal Mood - Problem List & Annotations (1) History of CVA (cerebrovascular accident) SNOMED Code(s): 301581899 Code(s): Z86.73 - PRSNL HX OF TIA (TIA), AND CEREB INFRC W/O RESID DEFICITS Status: Acute Current Visit: Yes (2) Adult failure to thrive SNOMED Code(s): 288734053 Code(s): R62.7 - ADULT FAILURE TO THRIVE Status: Acute Current Visit: Yes (3) Fracture of pelvis SNOMED Code(s): 22486754 Code(s): S32.9XXA - FRACTURE OF UNSP PARTS OF LUMBOSACRAL SPINE AND PELVIS, INIT Status: Acute Current Visit: Yes (4) HTN (hypertension) SNOMED Code(s): 74129582 Code(s): I10 - ESSENTIAL (PRIMARY) HYPERTENSION Status: Acute Priority: High Current Visit: Yes (5) Diabetes mellitus SNOMED Code(s): 59448676 Code(s): E11.9 - TYPE 2 DIABETES MELLITUS WITHOUT COMPLICATIONS Status: Chronic Priority: High Current Visit: Yes - Problem List Review Problem List Initiated/Reviewed/Updated: Yes - Assessment Assessment:: Vulnerable adult secondary to impaired mobility/ gait/ ADL's and s/p CVA. Risk for falls. Left superior and inferior pubic rami fracture, PWB. s/p CVA with mobility, gait, and balance/ coordination deficits. HTN Diabetes mellitus type II Hyperlipidemia - Plan Plan:: Vulnerable Adult, Superior and Inferior Pubic Rami Fracture, History of CVA Patient will remain inpatient for physical therapy consultation. Given patients history of CVA with flaccidity to RUE and recent superior and inferior pubic rami fractures and partial weight bearing status, he requires assistance with mobility, gait, transfers, and ADLs. Patient is a very high fall risk. Patient will likely be discharged to swing bed for continue physical therapy and assistance with mobility, gait, transfers, and ADLs. hopes to be able to have patient return home once he regains strength and full weight bearing status. Case management to continue to work with patient. Hypertension Continue current meds. Type II DM Continue Metformin and Levemir. QID glucose checks. Will add SSI. Sugars have been running 160's-260's. Hyperlipidemia Continue current meds. Atopic Dermatitis to Left eyelid Will start desonide topical DVT Prophylaxis Torsten boyle and Lovenox 40 mg
[2017-11-18] MEDS ORDERED: Magnesium Hydroxide 400 MG/5 ML Susp 30 ML Cup PO PRN (08:26)
[2017-11-18] MEDS: Docusate Sodium 100 MG Cap PO PRN (09:09)
[2017-11-18] MEDS: Hydrocortisone 1% Oint 28 GM Tube TOP SCH ×2 (10:58→19:26)
[2017-11-18] MEDS: Oxyquinoline/Emollient 0.3% Oint 1 OZ Canister TOP PRN (11:30)
[2017-11-18] MEDS: Insulin Aspart 100 Units/ML 3 ML Pen SUBCUT SCH ×3 (11:55→20:32)
[2017-11-18] MEDS: cloNIDine 0.1 MG Tab PO SCH (19:28)
[2017-11-18] MEDS: Insulin Detemir 100 Units/ML 3 ML Pen SUBCUT SCH (20:34)
[2017-11-19] MEDS: CINNAMON BARK 1000 MG PO SCH ×2 (07:39→19:27)
[2017-11-19] MEDS: BISOPROLOL PO SCH (07:39)
[2017-11-19] MEDS: HYDROCHLOROTHIAZIDE PO SCH (07:39)
[2017-11-19] MEDS: metFORMIN 500 MG Tab PO SCH ×2 (07:40→17:25)
[2017-11-19] MEDS: Folic Acid 1 MG Tab PO SCH (07:40)
[2017-11-19] MEDS: levETIRAcetam 500 MG Tab PO SCH ×2 (07:41→19:27)
[2017-11-19] MEDS: Lisinopril 20 MG Tab PO SCH (07:42)
[2017-11-19] MEDS: Hydrochlorothiazide 25 MG Tab PO SCH (07:42)
[2017-11-19] MEDS: Simvastatin 10 MG Tab PO SCH (07:43)
[2017-11-19] MEDS: amLODIPine 2.5 MG Tab PO SCH (07:43)
[2017-11-19] MEDS: Hydrocortisone 1% Oint 28 GM Tube TOP SCH ×2 (07:44→19:27)
[2017-11-19] MEDS: Enoxaparin 40 MG/0.4 ML Syringe SUBCUT SCH (07:44)
[2017-11-19] MEDS: Insulin Aspart 100 Units/ML 3 ML Pen SUBCUT SCH ×4 (07:45→20:40)
[2017-11-19] MEDS: Cholecalciferol (Vitamin D3) 1,000 Unit Tab PO SCH (07:49)
--- NOTE | 2017-11-19 10:44 | PN ---
DATE: 11/19/2017 S: Long Van is a gentleman, who came with pelvic fracture. He is doing fine. Pain is fairly good. Physical Therapy is working with him. We did give him some insulin and his blood sugars are better this morning. ASSESSMENT: PELVIC FRACTURE. P: Continue present therapy. SHANNON/ABDULKADIR /[id number]
[2017-11-19] MEDS: Polyethylene Glycol 3350 Powder 17 GM Packet PO PRN (14:24)
[2017-11-19] MEDS: cloNIDine 0.1 MG Tab PO SCH (19:26)
[2017-11-19] MEDS: Insulin Detemir 100 Units/ML 3 ML Pen SUBCUT SCH (20:38)
[2017-11-19] MEDS: Oxyquinoline/Emollient 0.3% Oint 1 OZ Canister TOP PRN (20:53)
--- NOTE | 2017-11-20 08:15 | PCM.DCSUM1 ---
Discharge Summary - Hospital Course HPI Initial Comments: Long is a 77 year old male who was admitted to the ED on 11/15/2017 with superior and inferior pubic rami fractures. He has done well during hospital stay in regards to pain control. He denies any pain. He has not progressed well with therapy. He has been max assist of 3 with EZ stand. He has not been bearing weight on his legs, even with further direction to bear weight on his good leg. He does have a f/u appointment with Dr. Leonardo (orthopedics) on 2017 at 1:45 pm. It was recommended by ortho for him to be partial weight bearing to LLE. We will attempt continued physical therapy in swing bed, in hopes that he will make progress and be able to return home under the care of his . - Discharge Data Discharge Date: 11/20/17 Discharge Disposition: DC/Tfer W/I Hosp To Swing Condition: Fair - Discharge Diagnosis/Problem(s) (1) Fracture of pelvis SNOMED Code(s): 42601382 ICD Code: S32.9XXA - FRACTURE OF UNSP PARTS OF LUMBOSACRAL SPINE AND PELVIS, INIT Status: Acute Current Visit: Yes (2) History of CVA (cerebrovascular accident) SNOMED Code(s): 336615669 ICD Code: Z86.73 - PRSNL HX OF TIA (TIA), AND CEREB INFRC W/O RESID DEFICITS Status: Acute Current Visit: Yes (3) Adult failure to thrive SNOMED Code(s): 423912341 ICD Code: R62.7 - ADULT FAILURE TO THRIVE Status: Acute Current Visit: Yes (4) HTN (hypertension) SNOMED Code(s): 02568696 ICD Code: I10 - ESSENTIAL (PRIMARY) HYPERTENSION Status: Acute Priority: High Current Visit: Yes (5) Diabetes mellitus SNOMED Code(s): 26128737 ICD Code: E11.9 - TYPE 2 DIABETES MELLITUS WITHOUT COMPLICATIONS Status: Chronic Priority: High Current Visit: Yes - Patient Summary/Data Consults: Consultations 11/15/17 22:48 PT Evaluation and Treatment [CONS] Routine - Patient Instructions Diet: Diabetic Diet Activity: Partial Weight Bearing (LLE) - Discharge Plan Home Medications: Home Meds Aspirin [Low Dose Aspirin EC] 81 mg PO DAILY 06/21/14 [History] Bisoprolol/Hydrochlorothiazide [Bisoprolol/HCTZ 5-6.25 MG] 1 tab PO DAILY [History] Cinnamon Bark [Cinnamon] 1,000 mg PO BID 06/21/14 [History] Folic Acid 0.4 mg PO DAILY 06/21/14 [History] Hydrochlorothiazide 25 mg PO DAILY 06/21/14 [History] Quinapril HCl 20 mg PO BID 06/21/14 [History] Simvastatin 10 mg PO DAILY 06/21/14 [History] amLODIPine [Norvasc] 5 mg PO DAILY 06/21/14 [History] cloNIDine [Catapres] 0.1 mg PO BEDTIME 06/21/14 [History] levETIRAcetam [Levetiracetam] 750 mg PO BID 06/21/14 [History] metFORMIN [Glucophage] 500 mg PO BID 06/21/14 [History] Insulin Detemir [Levemir Flextouch] 14 unit SQ QPM 11/15/17 [History] Cholecalciferol (Vitamin D3) [Vitamin D3] 5,000 units PO DAILY 11/16/17 [History ] Magnesium 250 mg PO DAILY 11/16/17 [History] Forms: ED Department Discharge Referrals: Keaton Sanchez MD [Primary Care Provider] - - General Info Date of Service: 11/20/17 Admission Dx/Problem (Free Text: Vulnerable adult due to PWB and impaired mobility/ gait/ ADL's, and transfers. At risk for falls/ injury and skin breakdown. Left side pelvic fracture, impaired mobility/ gait/ ADL's and transfers. Functional Status: Reports: Pain Controlled, Tolerating Diet, Urinating. Denies : Ambulating, New Symptoms - Review of Systems General: Reports: Weakness. Denies: Fever, Chills HEENT: Reports: No Symptoms Pulmonary: Reports: No Symptoms. Denies: Shortness of Breath, Cough, Sputum Cardiovascular: Reports: No Symptoms. Denies: Chest Pain, Dyspnea on Exertion, Lightheadedness Gastrointestinal: Reports: Constipation. Denies: Decreased Appetite, Nausea, Vomiting Genitourinary: Reports: No Symptoms Musculoskeletal: Denies: Leg Pain, Joint Pain Skin: Reports: No Symptoms Neurological: Reports: Pre-Existing Deficit, Difficulty Walking Psychiatric: Reports: No Symptoms - Patient Data Vitals - Most Recent: Last Vital Signs Temp 96.4 F 11/19/17 19:32 Pulse 100 11/19/17 19:32 Resp 18 11/19/17 19:32 BP 148/84 H 11/19/17 19:32 Pulse Ox 98 11/19/17 19:32 Weight - Most Recent: 212 lb 3.2 oz Lab Results - Last 24 hrs: Laboratory Results - last 24 hr 11/19/17 11/19/17 11/19/17 Range/Units 11:43 17:09 20:38 POC Glucose 284 H 291 H 329 H (75-105) mg/dl 11/20/17 Range/Units 07:20 POC Glucose 212 H (75-105) mg/dl Med Orders - Current: Current Medications Acetaminophen (Tylenol) 650 mg PO Q6H PRN PRN Reason: Pain Amlodipine Besylate (Norvasc) 5 mg PO DAILY [facility] Last Admin: 11/19/17 07:43 Dose: 5 mg Aspirin (Halfprin) 81 mg PO DAILY [facility] Last Admin: 11/19/17 07:41 Dose: 81 mg Cholecalciferol (Vitamin D3) 5,000 units PO DAILY [facility] Last Admin: 11/19/17 07:49 Dose: 5,000 units Clonidine HCl (Catapres) 0.1 mg PO BEDTIME [facility] Last Admin: 11/19/17 19:26 Dose: 0.1 mg Docusate Sodium (Colace) 100 mg PO BID PRN PRN Reason: Constipation Last Admin: 11/18/17 09:09 Dose: 100 mg Enoxaparin Sodium (Lovenox) 40 mg SUBCUT Q24H [facility] Last Admin: 11/19/17 07:44 Dose: 40 mg Folic Acid (Folic Acid) 0.5 mg PO DAILY [facility] Last Admin: 11/19/17 07:40 Dose: 0.5 mg Hydrochlorothiazide (Hydrochlorothiazide) 25 mg PO DAILY [facility] Last Admin: 11/19/17 07:42 Dose: 25 mg Hydrocortisone (Hydrocortisone 1% Oint) 0 gm TOP BID [facility] Last Admin: 11/19/17 19:27 Dose: 1 applic Insulin Aspart (Novolog) 0 unit SUBCUT WITHMEALSANDBED [facility]; Protocol Last Admin: 11/19/17 20:40 Dose: 4 units Insulin Detemir (Levemir) 14 unit SUBCUT BEDTIME [facility] Last Admin: 11/19/17 20:38 Dose: 14 units Levetiracetam (Keppra) 750 mg PO BID [facility] Last Admin: 11/19/17 19:27 Dose: 750 mg Lisinopril (Prinivil) 20 mg PO DAILY [facility] Last Admin: 11/19/17 07:42 Dose: 20 mg Magnesium Hydroxide (Milk Of Magnesia) 30 ml PO BID PRN PRN Reason: Constipation Magnesium Oxide (Magnesium Oxide) 250 mg PO DAILY [facility] Last Admin: 11/19/17 07:44 Dose: 250 mg Metformin HCl (Glucophage) 500 mg PO BIDMEALS [facility] Last Admin: 11/19/17 17:25 Dose: 500 mg Bisoprolol/Hydrochlorothiazide [Bisoprolol/Hctz 5-6 .25 MgOwn Med 1 tab PO DAILY [facility] Last Admin: 11/19/17 07:39 Dose: 1 tab Cinnamon Bark [ Cinnamon] 1,000 Mg Own Med 1,000 mg PO BID [facility] Last Admin: 11/19/17 19:27 Dose: 1,000 mg Oxyquinoline Sulfate (Bag [place] Oint) 1 oz TOP Q6H PRN PRN Reason: Other Last Admin: 11/19/17 20:53 Dose: 1 applic Polyethylene Glycol (Miralax) 17 gm PO DAILY PRN PRN Reason: Constipation Last Admin: 11/19/17 14:24 Dose: 17 gm Simvastatin (Zocor) 10 mg PO DAILY [facility] Last Admin: 11/19/17 07:43 Dose: 10 mg Discontinued Medications Amlodipine 5mgOwn (Med) 5 each PO DAILY [facility] Cholecalciferol 5000 (UnitsOwn Med) 5,000 each PO DAILY [facility] Folic Acid 400mcg (Own Med) 0.4 each PO DAILY [facility] Levetiracetam 750 Mg (TabOwn Med) 750 each PO BID [facility] Quinapril 40mg Own (Med) 20 each PO BID [facility] Folic Acid 400mcg (Own Med) 1 each PO DAILY [facility] Last Admin: 11/16/17 08:38 Dose: 1 each Amlodipine 5mgOwn (Med) 1 each PO DAILY [facility] Last Admin: 11/16/17 08:38 Dose: 1 each Cholecalciferol 5000 (UnitsOwn Med) 1 each PO DAILY [facility] Last Admin: 11/16/17 08:38 Dose: 1 each Quinapril 40mg Own (Med) 1 each PO BID [facility] Last Admin: 11/16/17 08:38 Dose: 1 each Levetiracetam 750 Mg (TabOwn Med) 1 each PO BID [facility] Last Admin: 11/16/17 08:38 Dose: 1 each - Exam Quality Assessment: Reports: DVT Prophylaxis General: Reports: Alert, Oriented, No Acute Distress Neck: Reports: Supple Lungs: Reports: Clear to Auscultation, Normal Respiratory Effort Cardiovascular: Reports: Regular Rate, Regular Rhythm GI/Abdominal Exam: Normal Bowel Sounds, Soft, Non-Tender, No Organomegaly, No Distention, No Abnormal Bruit, No Mass, Pelvis Stable Extremities: Normal Inspection, Non-Tender, No Pedal Edema, Normal Capillary Refill, Limited Range of Motion (LLE). No: Joint Swelling, Leg Pain, Increased Warmth Skin: Reports: Warm, Dry, Intact Neurological: Reports: No New Focal Deficit Psy/Mental Status: Reports: Alert, Normal Affect, Normal Mood
[2017-11-20 08:26] VITALS: BP 159/87
[2017-11-20] MEDS: Polyethylene Glycol 3350 Powder 17 GM Packet PO PRN (08:37)
[2017-11-20] MEDS: Enoxaparin 40 MG/0.4 ML Syringe SUBCUT SCH (08:37)
[2017-11-20] MEDS: Folic Acid 1 MG Tab PO SCH (08:40)
[2017-11-20] MEDS: levETIRAcetam 500 MG Tab PO SCH (08:40)
[2017-11-20] MEDS: Cholecalciferol (Vitamin D3) 1,000 Unit Tab PO SCH (08:41)
[2017-11-20] MEDS: Lisinopril 20 MG Tab PO SCH (08:42)
[2017-11-20] MEDS: amLODIPine 2.5 MG Tab PO SCH (08:42)
[2017-11-20] MEDS: Hydrochlorothiazide 25 MG Tab PO SCH (08:42)
[2017-11-20] MEDS: Docusate Sodium 100 MG Cap PO PRN (08:42)
[2017-11-20] MEDS: Hydrocortisone 1% Oint 28 GM Tube TOP SCH (08:43)
[2017-11-20] MEDS: metFORMIN 500 MG Tab PO SCH (08:43)
[2017-11-20] MEDS: Simvastatin 10 MG Tab PO SCH (08:43)
[2017-11-20] MEDS: HYDROCHLOROTHIAZIDE PO SCH (08:44)
[2017-11-20] MEDS: Insulin Aspart 100 Units/ML 3 ML Pen SUBCUT SCH (08:44)
[2017-11-20] MEDS: CINNAMON BARK 1000 MG PO SCH (08:44)
[2017-11-20] MEDS: BISOPROLOL PO SCH (08:44)
== END 2017-11-20 11:15 | disposition swing bed (61) | DRG 536 ==
LOC: CC.ED 20:15 → CC.MS 22:42 → OBSVTOIN 11-16 14:17
PROVIDERS: ADMIT Nurse Practitioner Family; ATTEND General Practice
DX: S32.592A Other specified fracture of left pubis, initial encounter for closed fracture (principal); W18.30XA Fall on same level, unspecified, initial encounter; I10 Essential (primary) hypertension; R56.9 Unspecified convulsions; E11.9 Type 2 diabetes mellitus without complications; E87.6 Hypokalemia; R62.7 Adult failure to thrive; K59.00 Constipation, unspecified; Z86.73 Personal history of transient ischemic attack (TIA), and cerebral infarction without residual deficits; F41.9 Anxiety disorder, unspecified; I69.398 Other sequelae of cerebral infarction; R26.9 Unspecified abnormalities of gait and mobility; R27.8 Other lack of coordination; M25.552 Pain in left hip; E78.5 Hyperlipidemia, unspecified; R53.1 Weakness; L20.89 Other atopic dermatitis; Z91.81 History of falling; Z96.642 Presence of left artificial hip joint; Z79.82 Long term (current) use of aspirin; Z79.4 Long term (current) use of insulin; Z79.899 Other long term (current) drug therapy
CPT/HCPCS: 36415; 80048; 80053; 81001; 82962; 85025; 85610; 85730; 97110-GP; 97163-GP; 97530-GP; 99285; A6250; A9270-GY; J1650; J1815-GY

== ENCOUNTER 2017-11-20 11:27 | Inpatient (IN) | payer MEDICARE, BC ==
[2017-11-20] MEDS ORDERED: Acetaminophen 325 MG Tab PO PRN (15:03)
[2017-11-20] MEDS ORDERED: Docusate Sodium 100 MG Cap PO PRN (15:03)
[2017-11-20] MEDS ORDERED: Magnesium Hydroxide 400 MG/5 ML Susp 30 ML Cup PO PRN (15:03)
[2017-11-20] MEDS ORDERED: Polyethylene Glycol 3350 Powder 17 GM Packet PO PRN (15:03)
[2017-11-20] MEDS: metFORMIN 500 MG Tab PO SCH (17:34)
[2017-11-20] MEDS: Insulin Aspart 100 Units/ML 3 ML Pen SUBCUT SCH ×2 (17:35→20:39)
[2017-11-20] MEDS: cloNIDine 0.1 MG Tab PO SCH (19:34)
[2017-11-20] MEDS: CINNAMON BARK 1000 MG PO SCH (19:35)
[2017-11-20] MEDS: Hydrocortisone 1% Oint 28 GM Tube TOP SCH (19:35)
[2017-11-20] MEDS: levETIRAcetam 500 MG Tab PO SCH (19:36)
[2017-11-20] MEDS ORDERED: Insulin Detemir 100 Units/ML 3 ML Pen SUBCUT SCH (20:00)
[2017-11-20] MEDS: Oxyquinoline/Emollient 0.3% Oint 1 OZ Canister TOP PRN (20:37)
[2017-11-20] MEDS: Insulin Detemir 100 Units/ML 3 ML Pen SUBCUT SCH (20:38)
[2017-11-21] MEDS: Hydrochlorothiazide 25 MG Tab PO SCH (07:48)
[2017-11-21] MEDS: Aspirin 81 MG Tab.EC PO SCH (07:48)
[2017-11-21] MEDS: Cholecalciferol (Vitamin D3) 1,000 Unit Tab PO SCH (07:48)
[2017-11-21] MEDS: levETIRAcetam 500 MG Tab PO SCH ×2 (07:49→20:14)
[2017-11-21] MEDS: amLODIPine 2.5 MG Tab PO SCH (07:49)
[2017-11-21] MEDS: Lisinopril 20 MG Tab PO SCH (07:52)
[2017-11-21] MEDS: Folic Acid 1 MG Tab PO SCH (07:53)
[2017-11-21] MEDS: metFORMIN 500 MG Tab PO SCH ×2 (07:53→17:44)
[2017-11-21] MEDS: Simvastatin 10 MG Tab PO SCH (07:54)
[2017-11-21] MEDS: HYDROCHLOROTHIAZIDE PO SCH (07:54)
[2017-11-21] MEDS: BISOPROLOL PO SCH (07:54)
[2017-11-21] MEDS: CINNAMON BARK 1000 MG PO SCH ×2 (07:55→20:13)
[2017-11-21] MEDS: Hydrocortisone 1% Oint 28 GM Tube TOP SCH ×2 (07:55→20:14)
[2017-11-21] MEDS: Insulin Aspart 100 Units/ML 3 ML Pen SUBCUT SCH ×4 (07:56→20:16)
[2017-11-21] MEDS: Enoxaparin 40 MG/0.4 ML Syringe SUBCUT SCH (07:56)
[2017-11-21] MEDS ORDERED: Bisacodyl 10 MG Supp RECTAL ONE (09:02)
[2017-11-21] MEDS: cloNIDine 0.1 MG Tab PO SCH (20:13)
[2017-11-21] MEDS: Insulin Detemir 100 Units/ML 3 ML Pen SUBCUT SCH (20:15)
[2017-11-22] MEDS: BISOPROLOL PO SCH (07:38)
[2017-11-22] MEDS: HYDROCHLOROTHIAZIDE PO SCH (07:38)
[2017-11-22] MEDS: CINNAMON BARK 1000 MG PO SCH ×2 (07:38→20:46)
[2017-11-22] MEDS: Insulin Aspart 100 Units/ML 3 ML Pen SUBCUT SCH ×4 (07:39→20:47)
[2017-11-22] MEDS: Simvastatin 10 MG Tab PO SCH (07:41)
[2017-11-22] MEDS: Aspirin 81 MG Tab.EC PO SCH (07:42)
[2017-11-22] MEDS: Lisinopril 20 MG Tab PO SCH (07:42)
[2017-11-22] MEDS: Hydrochlorothiazide 25 MG Tab PO SCH (07:42)
[2017-11-22] MEDS: metFORMIN 500 MG Tab PO SCH ×2 (07:42→17:47)
[2017-11-22] MEDS: Folic Acid 1 MG Tab PO SCH (07:43)
[2017-11-22] MEDS: amLODIPine 2.5 MG Tab PO SCH (07:43)
[2017-11-22] MEDS: Enoxaparin 40 MG/0.4 ML Syringe SUBCUT SCH (07:43)
[2017-11-22] MEDS: levETIRAcetam 500 MG Tab PO SCH ×2 (07:44→20:46)
[2017-11-22] MEDS: Cholecalciferol (Vitamin D3) 1,000 Unit Tab PO SCH (07:44)
[2017-11-22] MEDS: Hydrocortisone 1% Oint 28 GM Tube TOP SCH ×2 (07:46→20:46)
[2017-11-22] MEDS: cloNIDine 0.1 MG Tab PO SCH (20:45)
[2017-11-22] MEDS: Insulin Detemir 100 Units/ML 3 ML Pen SUBCUT SCH (20:46)
[2017-11-23] MEDS: Insulin Aspart 100 Units/ML 3 ML Pen SUBCUT SCH ×4 (07:56→21:17)
[2017-11-23] MEDS: Hydrocortisone 1% Oint 28 GM Tube TOP SCH ×2 (07:56→21:15)
[2017-11-23] MEDS: levETIRAcetam 500 MG Tab PO SCH ×2 (07:57→21:13)
[2017-11-23] MEDS: HYDROCHLOROTHIAZIDE PO SCH (07:58)
[2017-11-23] MEDS: BISOPROLOL PO SCH (07:58)
[2017-11-23] MEDS: amLODIPine 2.5 MG Tab PO SCH (07:58)
[2017-11-23] MEDS: CINNAMON BARK 1000 MG PO SCH ×2 (07:58→21:13)
[2017-11-23] MEDS: Folic Acid 1 MG Tab PO SCH (07:59)
[2017-11-23] MEDS: Lisinopril 20 MG Tab PO SCH (07:59)
[2017-11-23] MEDS: Simvastatin 10 MG Tab PO SCH (08:00)
[2017-11-23] MEDS: metFORMIN 500 MG Tab PO SCH ×2 (08:00→18:59)
[2017-11-23] MEDS: Aspirin 81 MG Tab.EC PO SCH (08:01)
[2017-11-23] MEDS: Cholecalciferol (Vitamin D3) 1,000 Unit Tab PO SCH (08:01)
[2017-11-23] MEDS: Hydrochlorothiazide 25 MG Tab PO SCH (08:02)
[2017-11-23] MEDS: Enoxaparin 40 MG/0.4 ML Syringe SUBCUT SCH (08:02)
[2017-11-23] MEDS: cloNIDine 0.1 MG Tab PO SCH (21:13)
[2017-11-23] MEDS: Insulin Detemir 100 Units/ML 3 ML Pen SUBCUT SCH (21:17)
[2017-11-24] MEDS: Insulin Aspart 100 Units/ML 3 ML Pen SUBCUT SCH ×4 (08:08→20:35)
[2017-11-24] MEDS: levETIRAcetam 500 MG Tab PO SCH ×2 (08:08→20:02)
[2017-11-24] MEDS: CINNAMON BARK 1000 MG PO SCH ×2 (08:08→20:07)
[2017-11-24] MEDS: Aspirin 81 MG Tab.EC PO SCH (08:09)
[2017-11-24] MEDS: metFORMIN 500 MG Tab PO SCH ×2 (08:09→17:25)
[2017-11-24] MEDS: Hydrochlorothiazide 25 MG Tab PO SCH (08:09)
[2017-11-24] MEDS: amLODIPine 2.5 MG Tab PO SCH (08:10)
[2017-11-24] MEDS: Folic Acid 1 MG Tab PO SCH (08:10)
[2017-11-24] MEDS: Simvastatin 10 MG Tab PO SCH (08:11)
[2017-11-24] MEDS: Lisinopril 20 MG Tab PO SCH (08:11)
[2017-11-24] MEDS: Cholecalciferol (Vitamin D3) 1,000 Unit Tab PO SCH (08:11)
[2017-11-24] MEDS: HYDROCHLOROTHIAZIDE PO SCH (08:12)
[2017-11-24] MEDS: Enoxaparin 40 MG/0.4 ML Syringe SUBCUT SCH (08:12)
[2017-11-24] MEDS: BISOPROLOL PO SCH (08:12)
[2017-11-24] MEDS: Hydrocortisone 1% Oint 28 GM Tube TOP SCH ×2 (08:13→20:07)
[2017-11-24] MEDS: cloNIDine 0.1 MG Tab PO SCH (20:03)
[2017-11-24] MEDS: Insulin Detemir 100 Units/ML 3 ML Pen SUBCUT SCH (20:34)
[2017-11-25] MEDS: HYDROCHLOROTHIAZIDE PO SCH (07:34)
[2017-11-25] MEDS: Aspirin 81 MG Tab.EC PO SCH (07:34)
[2017-11-25] MEDS: Folic Acid 1 MG Tab PO SCH (07:34)
[2017-11-25] MEDS: CINNAMON BARK 1000 MG PO SCH ×2 (07:34→19:22)
[2017-11-25] MEDS: BISOPROLOL PO SCH (07:34)
[2017-11-25] MEDS: Lisinopril 20 MG Tab PO SCH (07:35)
[2017-11-25] MEDS: metFORMIN 500 MG Tab PO SCH ×2 (07:35→17:25)
[2017-11-25] MEDS: levETIRAcetam 500 MG Tab PO SCH ×2 (07:35→19:20)
[2017-11-25] MEDS: Simvastatin 10 MG Tab PO SCH (07:36)
[2017-11-25] MEDS: amLODIPine 2.5 MG Tab PO SCH (07:36)
[2017-11-25] MEDS: Enoxaparin 40 MG/0.4 ML Syringe SUBCUT SCH (07:36)
[2017-11-25] MEDS: Cholecalciferol (Vitamin D3) 1,000 Unit Tab PO SCH (07:36)
[2017-11-25] MEDS: Hydrochlorothiazide 25 MG Tab PO SCH (07:36)
[2017-11-25] MEDS: Insulin Aspart 100 Units/ML 3 ML Pen SUBCUT SCH ×4 (07:39→19:51)
[2017-11-25] MEDS: Hydrocortisone 1% Oint 28 GM Tube TOP SCH ×2 (07:39→19:23)
[2017-11-25] MEDS: cloNIDine 0.1 MG Tab PO SCH (19:22)
[2017-11-25] MEDS: Insulin Detemir 100 Units/ML 3 ML Pen SUBCUT SCH (19:40)
[2017-11-26] MEDS: Enoxaparin 40 MG/0.4 ML Syringe SUBCUT SCH (07:41)
[2017-11-26] MEDS: Hydrochlorothiazide 25 MG Tab PO SCH (07:41)
[2017-11-26] MEDS: metFORMIN 500 MG Tab PO SCH ×2 (07:41→18:48)
[2017-11-26] MEDS: Simvastatin 10 MG Tab PO SCH (07:41)
[2017-11-26] MEDS: levETIRAcetam 500 MG Tab PO SCH ×2 (07:41→19:40)
[2017-11-26] MEDS: Aspirin 81 MG Tab.EC PO SCH (07:42)
[2017-11-26] MEDS: Folic Acid 1 MG Tab PO SCH (07:42)
[2017-11-26] MEDS: amLODIPine 2.5 MG Tab PO SCH (07:42)
[2017-11-26] MEDS: Lisinopril 20 MG Tab PO SCH (07:42)
[2017-11-26] MEDS: Cholecalciferol (Vitamin D3) 1,000 Unit Tab PO SCH (07:42)
[2017-11-26] MEDS: BISOPROLOL PO SCH (07:43)
[2017-11-26] MEDS: HYDROCHLOROTHIAZIDE PO SCH (07:43)
[2017-11-26] MEDS: CINNAMON BARK 1000 MG PO SCH ×2 (07:43→19:38)
[2017-11-26] MEDS: Insulin Aspart 100 Units/ML 3 ML Pen SUBCUT SCH ×4 (07:44→19:59)
[2017-11-26] MEDS: Hydrocortisone 1% Oint 28 GM Tube TOP SCH ×2 (07:44→19:39)
[2017-11-26] MEDS: cloNIDine 0.1 MG Tab PO SCH (19:39)
[2017-11-26] MEDS: Oxyquinoline/Emollient 0.3% Oint 1 OZ Canister TOP PRN (19:41)
[2017-11-26] MEDS: Insulin Detemir 100 Units/ML 3 ML Pen SUBCUT SCH (19:57)
[2017-11-27] MEDS: CINNAMON BARK 1000 MG PO SCH ×2 (08:02→19:28)
[2017-11-27] MEDS: HYDROCHLOROTHIAZIDE PO SCH (08:02)
[2017-11-27] MEDS: BISOPROLOL PO SCH (08:02)
[2017-11-27] MEDS: Folic Acid 1 MG Tab PO SCH (08:02)
[2017-11-27] MEDS: metFORMIN 500 MG Tab PO SCH ×2 (08:03→17:30)
[2017-11-27] MEDS: Hydrochlorothiazide 25 MG Tab PO SCH (08:04)
[2017-11-27] MEDS: Aspirin 81 MG Tab.EC PO SCH (08:04)
[2017-11-27] MEDS: levETIRAcetam 500 MG Tab PO SCH ×2 (08:05→19:27)
[2017-11-27] MEDS: Hydrocortisone 1% Oint 28 GM Tube TOP SCH ×2 (08:05→19:28)
[2017-11-27] MEDS: Enoxaparin 40 MG/0.4 ML Syringe SUBCUT SCH (08:06)
[2017-11-27] MEDS: amLODIPine 2.5 MG Tab PO SCH (08:06)
[2017-11-27] MEDS: Cholecalciferol (Vitamin D3) 1,000 Unit Tab PO SCH (08:07)
[2017-11-27] MEDS: Insulin Aspart 100 Units/ML 3 ML Pen SUBCUT SCH ×4 (08:07→20:41)
[2017-11-27] MEDS: Lisinopril 20 MG Tab PO SCH (08:07)
[2017-11-27] MEDS: Simvastatin 10 MG Tab PO SCH (08:08)
[2017-11-27] MEDS: cloNIDine 0.1 MG Tab PO SCH (19:27)
[2017-11-27] MEDS: Insulin Detemir 100 Units/ML 3 ML Pen SUBCUT SCH (20:40)
[2017-11-28] MEDS: HYDROCHLOROTHIAZIDE PO SCH (08:09)
[2017-11-28] MEDS: BISOPROLOL PO SCH (08:09)
[2017-11-28] MEDS: Hydrocortisone 1% Oint 28 GM Tube TOP SCH ×2 (08:10→20:16)
[2017-11-28] MEDS: CINNAMON BARK 1000 MG PO SCH ×2 (08:10→20:16)
[2017-11-28] MEDS: levETIRAcetam 500 MG Tab PO SCH ×2 (08:11→20:16)
[2017-11-28] MEDS: Folic Acid 1 MG Tab PO SCH (08:11)
[2017-11-28] MEDS: Enoxaparin 40 MG/0.4 ML Syringe SUBCUT SCH (08:11)
[2017-11-28] MEDS: metFORMIN 500 MG Tab PO SCH ×2 (08:12→17:28)
[2017-11-28] MEDS: Simvastatin 10 MG Tab PO SCH (08:12)
[2017-11-28] MEDS: Lisinopril 20 MG Tab PO SCH (08:12)
[2017-11-28] MEDS: Aspirin 81 MG Tab.EC PO SCH (08:12)
[2017-11-28] MEDS: amLODIPine 2.5 MG Tab PO SCH (08:13)
[2017-11-28] MEDS: Cholecalciferol (Vitamin D3) 1,000 Unit Tab PO SCH (08:14)
[2017-11-28] MEDS: Hydrochlorothiazide 25 MG Tab PO SCH (08:14)
[2017-11-28] MEDS: Insulin Aspart 100 Units/ML 3 ML Pen SUBCUT SCH ×4 (08:16→20:19)
[2017-11-28] MEDS: cloNIDine 0.1 MG Tab PO SCH (20:15)
[2017-11-28] MEDS: Insulin Detemir 100 Units/ML 3 ML Pen SUBCUT SCH (20:18)
[2017-11-29] MEDS: BISOPROLOL PO SCH (07:54)
[2017-11-29] MEDS: CINNAMON BARK 1000 MG PO SCH ×2 (07:54→20:23)
[2017-11-29] MEDS: HYDROCHLOROTHIAZIDE PO SCH (07:54)
[2017-11-29] MEDS: Folic Acid 1 MG Tab PO SCH (07:55)
[2017-11-29] MEDS: metFORMIN 500 MG Tab PO SCH ×2 (07:55→17:21)
[2017-11-29] MEDS: Hydrocortisone 1% Oint 28 GM Tube TOP SCH ×2 (07:56→20:30)
[2017-11-29] MEDS: levETIRAcetam 500 MG Tab PO SCH ×2 (07:56→20:23)
[2017-11-29] MEDS: Hydrochlorothiazide 25 MG Tab PO SCH (07:56)
[2017-11-29] MEDS: Aspirin 81 MG Tab.EC PO SCH (07:56)
[2017-11-29] MEDS: Enoxaparin 40 MG/0.4 ML Syringe SUBCUT SCH (07:57)
[2017-11-29] MEDS: amLODIPine 2.5 MG Tab PO SCH (07:58)
[2017-11-29] MEDS: Cholecalciferol (Vitamin D3) 1,000 Unit Tab PO SCH (07:59)
[2017-11-29] MEDS: Lisinopril 20 MG Tab PO SCH (07:59)
[2017-11-29] MEDS: Simvastatin 10 MG Tab PO SCH (08:00)
[2017-11-29] MEDS: Insulin Aspart 100 Units/ML 3 ML Pen SUBCUT SCH ×4 (08:02→20:27)
[2017-11-29] MEDS: cloNIDine 0.1 MG Tab PO SCH (20:23)
[2017-11-29] MEDS: Insulin Detemir 100 Units/ML 3 ML Pen SUBCUT SCH (20:29)
[2017-11-30] MEDS: HYDROCHLOROTHIAZIDE PO SCH (07:22)
[2017-11-30] MEDS: BISOPROLOL PO SCH (07:22)
[2017-11-30] MEDS: CINNAMON BARK 1000 MG PO SCH ×2 (07:22→19:38)
[2017-11-30] MEDS: Folic Acid 1 MG Tab PO SCH (07:23)
[2017-11-30] MEDS: metFORMIN 500 MG Tab PO SCH ×2 (07:23→17:24)
[2017-11-30] MEDS: Aspirin 81 MG Tab.EC PO SCH (07:23)
[2017-11-30] MEDS: levETIRAcetam 500 MG Tab PO SCH ×2 (07:24→19:38)
[2017-11-30] MEDS: Hydrocortisone 1% Oint 28 GM Tube TOP SCH ×2 (07:24→19:38)
[2017-11-30] MEDS: Hydrochlorothiazide 25 MG Tab PO SCH (07:24)
[2017-11-30] MEDS: Enoxaparin 40 MG/0.4 ML Syringe SUBCUT SCH (07:25)
[2017-11-30] MEDS: amLODIPine 2.5 MG Tab PO SCH (07:26)
[2017-11-30] MEDS: Lisinopril 20 MG Tab PO SCH (07:28)
[2017-11-30] MEDS: Cholecalciferol (Vitamin D3) 1,000 Unit Tab PO SCH (07:28)
[2017-11-30] MEDS: Simvastatin 10 MG Tab PO SCH (07:29)
[2017-11-30] MEDS: Insulin Aspart 100 Units/ML 3 ML Pen SUBCUT SCH ×4 (07:30→20:24)
[2017-11-30] MEDS: cloNIDine 0.1 MG Tab PO SCH (19:38)
[2017-11-30] MEDS: Insulin Detemir 100 Units/ML 3 ML Pen SUBCUT SCH (20:24)
[2017-12-01] MEDS: HYDROCHLOROTHIAZIDE PO SCH (07:26)
[2017-12-01] MEDS: Simvastatin 10 MG Tab PO SCH (07:26)
[2017-12-01] MEDS: BISOPROLOL PO SCH (07:26)
[2017-12-01] MEDS: metFORMIN 500 MG Tab PO SCH ×2 (07:26→17:17)
[2017-12-01] MEDS: CINNAMON BARK 1000 MG PO SCH ×2 (07:26→20:02)
[2017-12-01] MEDS: Aspirin 81 MG Tab.EC PO SCH (07:27)
[2017-12-01] MEDS: Lisinopril 20 MG Tab PO SCH (07:27)
[2017-12-01] MEDS: levETIRAcetam 500 MG Tab PO SCH ×2 (07:28→20:02)
[2017-12-01] MEDS: Folic Acid 1 MG Tab PO SCH (07:28)
[2017-12-01] MEDS: Hydrochlorothiazide 25 MG Tab PO SCH (07:29)
[2017-12-01] MEDS: Cholecalciferol (Vitamin D3) 1,000 Unit Tab PO SCH (07:29)
[2017-12-01] MEDS: Enoxaparin 40 MG/0.4 ML Syringe SUBCUT SCH (07:30)
[2017-12-01] MEDS: Insulin Aspart 100 Units/ML 3 ML Pen SUBCUT SCH ×4 (07:30→20:08)
[2017-12-01] MEDS: Hydrocortisone 1% Oint 28 GM Tube TOP SCH ×2 (07:31→20:03)
[2017-12-01] MEDS: amLODIPine 2.5 MG Tab PO SCH (07:36)
[2017-12-01] MEDS: cloNIDine 0.1 MG Tab PO SCH (20:02)
[2017-12-01] MEDS: Insulin Detemir 100 Units/ML 3 ML Pen SUBCUT SCH (20:07)
[2017-12-02] MEDS: Lisinopril 20 MG Tab PO SCH (08:26)
[2017-12-02] MEDS: levETIRAcetam 500 MG Tab PO SCH ×2 (08:27→20:32)
[2017-12-02] MEDS: Folic Acid 1 MG Tab PO SCH (08:27)
[2017-12-02] MEDS: Cholecalciferol (Vitamin D3) 1,000 Unit Tab PO SCH (08:27)
[2017-12-02] MEDS: Hydrochlorothiazide 25 MG Tab PO SCH (08:28)
[2017-12-02] MEDS: Enoxaparin 40 MG/0.4 ML Syringe SUBCUT SCH (08:28)
[2017-12-02] MEDS: Simvastatin 10 MG Tab PO SCH (08:28)
[2017-12-02] MEDS: Aspirin 81 MG Tab.EC PO SCH (08:28)
[2017-12-02] MEDS: metFORMIN 500 MG Tab PO SCH ×2 (08:28→17:35)
[2017-12-02] MEDS: amLODIPine 2.5 MG Tab PO SCH (08:28)
[2017-12-02] MEDS: Hydrocortisone 1% Oint 28 GM Tube TOP SCH ×2 (08:29→20:33)
[2017-12-02] MEDS: BISOPROLOL PO SCH (08:30)
[2017-12-02] MEDS: HYDROCHLOROTHIAZIDE PO SCH (08:30)
[2017-12-02] MEDS: CINNAMON BARK 1000 MG PO SCH ×2 (08:30→20:32)
[2017-12-02] MEDS: Insulin Aspart 100 Units/ML 3 ML Pen SUBCUT SCH ×4 (08:31→20:37)
[2017-12-02] MEDS: cloNIDine 0.1 MG Tab PO SCH (20:32)
[2017-12-02] MEDS: Insulin Detemir 100 Units/ML 3 ML Pen SUBCUT SCH (20:36)
[2017-12-03] MEDS: CINNAMON BARK 1000 MG PO SCH ×2 (07:58→19:45)
[2017-12-03] MEDS: Cholecalciferol (Vitamin D3) 1,000 Unit Tab PO SCH (07:58)
[2017-12-03] MEDS: Enoxaparin 40 MG/0.4 ML Syringe SUBCUT SCH (07:58)
[2017-12-03] MEDS: levETIRAcetam 500 MG Tab PO SCH ×2 (07:59→19:46)
[2017-12-03] MEDS: metFORMIN 500 MG Tab PO SCH ×2 (08:00→17:24)
[2017-12-03] MEDS: amLODIPine 2.5 MG Tab PO SCH (08:00)
[2017-12-03] MEDS: Simvastatin 10 MG Tab PO SCH (08:00)
[2017-12-03] MEDS: Aspirin 81 MG Tab.EC PO SCH (08:00)
[2017-12-03] MEDS: HYDROCHLOROTHIAZIDE PO SCH (08:01)
[2017-12-03] MEDS: Hydrochlorothiazide 25 MG Tab PO SCH (08:01)
[2017-12-03] MEDS: Lisinopril 20 MG Tab PO SCH (08:01)
[2017-12-03] MEDS: Folic Acid 1 MG Tab PO SCH (08:01)
[2017-12-03] MEDS: BISOPROLOL PO SCH (08:01)
[2017-12-03] MEDS: Insulin Aspart 100 Units/ML 3 ML Pen SUBCUT SCH ×4 (08:02→20:43)
[2017-12-03] MEDS: Hydrocortisone 1% Oint 28 GM Tube TOP SCH ×2 (08:02→19:45)
[2017-12-03] MEDS: cloNIDine 0.1 MG Tab PO SCH (19:46)
[2017-12-03] MEDS: Insulin Detemir 100 Units/ML 3 ML Pen SUBCUT SCH (20:42)
[2017-12-04 07:52] VITALS: BP 139/76
[2017-12-04] MEDS: HYDROCHLOROTHIAZIDE PO SCH (08:05)
[2017-12-04] MEDS: BISOPROLOL PO SCH (08:05)
[2017-12-04] MEDS: Hydrocortisone 1% Oint 28 GM Tube TOP SCH (08:05)
[2017-12-04] MEDS: CINNAMON BARK 1000 MG PO SCH (08:05)
[2017-12-04] MEDS: levETIRAcetam 500 MG Tab PO SCH (08:05)
[2017-12-04] MEDS: Lisinopril 20 MG Tab PO SCH (08:06)
[2017-12-04] MEDS: Simvastatin 10 MG Tab PO SCH (08:06)
[2017-12-04] MEDS: Hydrochlorothiazide 25 MG Tab PO SCH (08:07)
[2017-12-04] MEDS: Folic Acid 1 MG Tab PO SCH (08:07)
[2017-12-04] MEDS: metFORMIN 500 MG Tab PO SCH (08:07)
[2017-12-04] MEDS: Enoxaparin 40 MG/0.4 ML Syringe SUBCUT SCH (08:08)
[2017-12-04] MEDS: Cholecalciferol (Vitamin D3) 1,000 Unit Tab PO SCH (08:08)
[2017-12-04] MEDS: Aspirin 81 MG Tab.EC PO SCH (08:08)
[2017-12-04] MEDS: amLODIPine 2.5 MG Tab PO SCH (08:09)
[2017-12-04] MEDS: Insulin Aspart 100 Units/ML 3 ML Pen SUBCUT SCH ×2 (08:09→11:46)
--- NOTE | 2017-12-04 08:40 | PCM.DCSUM1 ---
Discharge Summary - Hospital Course HPI Initial Comments: Long is a 77 year old male who was originally admitted to the hospital on 2017 after suffering a fall at home and sustaining superior and inferior pubic rami fractures. On 11/20/2017 he was discharge from acute and admitted to swing bed for continued physical therapy. He has progressed well throughout stay. PT was working with him and eventually had him using a hemiwalker. He has also been using the EZ stand for transfers. Initially orthopedics recommended PWB to LLE. He did f/u with Dr. Leonardo (Orthopedics) on 11/28/2017 and was allowed to be WBAT. He had a rather uneventful hospital stay. He was not requiring pain medications. He will be discharged home with home health. He does have an EZ stand lift at home and will have assistance from his . Script was also sent for hemiwalker. Patient is home bound from previous CVA and subsequent pelvic fracture. He also has chronic illnesses requiring close monitoring. Given recent pelvic fracture he requires physical therapy for transfer training, strengthening, and gait assistance. Patient is an extremely high fall risk given recent falls, weakness, and history of CVA. He does require the use of an assistive device. He remains weak and requires close monitoring. Dr. Sanchez will receive home health plan of care. Diagnosis: Stroke: No - Discharge Data Discharge Date: 12/04/17 Discharge Disposition: Home, W Home Health Agency 06 Condition: Good - Discharge Diagnosis/Problem(s) (1) Fracture of pelvis SNOMED Code(s): 90009762 ICD Code: S32.9XXA - FRACTURE OF UNSP PARTS OF LUMBOSACRAL SPINE AND PELVIS, INIT Status: Acute (2) HTN (hypertension) SNOMED Code(s): 11440665 ICD Code: I10 - ESSENTIAL (PRIMARY) HYPERTENSION Status: Acute Priority: High Qualifiers: Hypertension type: unspecified Qualified Code(s): I10 - Essential (primary ) hypertension (3) History of CVA (cerebrovascular accident) SNOMED Code(s): 106820367 ICD Code: Z86.73 - PRSNL HX OF TIA (TIA), AND CEREB INFRC W/O RESID DEFICITS Status: Acute (4) Diabetes mellitus SNOMED Code(s): 39065369 ICD Code: E11.9 - TYPE 2 DIABETES MELLITUS WITHOUT COMPLICATIONS Status: Chronic Priority: High - Patient Summary/Data Consults: Consultations 11/20/17 15:03 PT Evaluation and Treatment [CONS] Routine - Patient Instructions Diet: Diabetic Diet Activity: As Tolerated, Full Weight Bearing Notify Provider of: Fever, Increased Pain, Swelling and Redness, Drainage - Discharge Plan Home Medications: Home Meds Aspirin [Low Dose Aspirin EC] 81 mg PO DAILY 06/21/14 [History] Bisoprolol/Hydrochlorothiazide [Bisoprolol/HCTZ 5-6.25 MG] 1 tab PO DAILY [History] Cinnamon Bark [Cinnamon] 1,000 mg PO BID 06/21/14 [History] Folic Acid 0.4 mg PO DAILY 06/21/14 [History] Hydrochlorothiazide 25 mg PO DAILY 06/21/14 [History] Quinapril HCl 20 mg PO BID 06/21/14 [History] Simvastatin 10 mg PO DAILY 06/21/14 [History] amLODIPine [Norvasc] 5 mg PO DAILY 06/21/14 [History] cloNIDine [Catapres] 0.1 mg PO BEDTIME 06/21/14 [History] levETIRAcetam [Levetiracetam] 750 mg PO BID 06/21/14 [History] metFORMIN [Glucophage] 500 mg PO BID 06/21/14 [History] Insulin Detemir [Levemir Flextouch] 14 unit SQ QPM 11/15/17 [History] Cholecalciferol (Vitamin D3) [Vitamin D3] 5,000 units PO DAILY 11/16/17 [History ] Magnesium 250 mg PO DAILY 11/16/17 [History] Patient Handouts: Simple Pelvic Fracture, Adult - General Info Date of Service: 12/04/17 Admission Dx/Problem (Free Text: Superior and inferior pubic without my fractures of left Hypertension. Type 2 diabetes mellitus Subjective Update: Patient reports he is feeling well. He is excited to be discharging home. He does not have any complaints this morning. Functional Status: Reports: Pain Controlled, Tolerating Diet, Ambulating (with assistance and walker), Urinating. Denies: New Symptoms - Patient Data Vitals - Most Recent: Last Vital Signs Temp 96.3 F 12/04/17 07:44 Pulse 70 12/04/17 07:44 Resp 18 12/04/17 07:44 BP 139/76 12/04/17 07:44 Pulse Ox 97 12/04/17 07:44 Weight - Most Recent: 203 lb 12.8 oz Lab Results - Last 24 hrs: Laboratory Results - last 24 hr 12/03/17 12/03/17 12/03/17 Range/Units 12:02 17:25 20:40 POC Glucose 187 H 214 H 188 H (75-105) mg/dl 12/04/17 Range/Units 08:01 POC Glucose 108 H (75-105) mg/dl Med Orders - Current: Current Medications Acetaminophen (Tylenol) 650 mg PO Q6H PRN PRN Reason: Pain Amlodipine Besylate (Norvasc) 5 mg PO DAILY [facility] Last Admin: 12/04/17 08:09 Dose: 5 mg Aspirin (Halfprin) 81 mg PO DAILY [facility] Last Admin: 12/04/17 08:08 Dose: 81 mg Cholecalciferol (Vitamin D3) 5,000 units PO DAILY [facility] Last Admin: 12/04/17 08:08 Dose: 5,000 units Clonidine HCl (Catapres) 0.1 mg PO BEDTIME [facility] Last Admin: 12/03/17 19:46 Dose: 0.1 mg Docusate Sodium (Colace) 100 mg PO BID PRN PRN Reason: Constipation Last Admin: 11/20/17 19:40 Dose: 100 mg Enoxaparin Sodium (Lovenox) 40 mg SUBCUT Q24H [facility] Last Admin: 12/04/17 08:08 Dose: 40 mg Folic Acid (Folic Acid) 0.5 mg PO DAILY [facility] Last Admin: 12/04/17 08:07 Dose: 0.5 mg Hydrochlorothiazide (Hydrochlorothiazide) 25 mg PO DAILY [facility] Last Admin: 12/04/17 08:07 Dose: 25 mg Hydrocortisone (Hydrocortisone 1% Oint) 0 gm TOP BID [facility] Last Admin: 12/04/17 08:05 Dose: 1 applic Insulin Aspart (Novolog) 0 unit SUBCUT WITHMEALSANDBED [facility]; Protocol Last Admin: 12/04/17 08:09 Dose: Not Given Insulin Detemir (Levemir) 20 unit SUBCUT BEDTIME [facility] Last Admin: 12/03/17 20:42 Dose: 20 units Levetiracetam (Keppra) 750 mg PO BID [facility] Last Admin: 12/04/17 08:05 Dose: 750 mg Lisinopril (Prinivil) 20 mg PO DAILY [facility] Last Admin: 12/04/17 08:06 Dose: 20 mg Magnesium Hydroxide (Milk Of Magnesia) 30 ml PO BID PRN PRN Reason: Constipation Magnesium Oxide (Magnesium Oxide) 250 mg PO DAILY [facility] Last Admin: 12/04/17 08:06 Dose: 250 mg Metformin HCl (Glucophage) 500 mg PO BIDMEALS [facility] Last Admin: 12/04/17 08:07 Dose: 500 mg Ptom Bisoprolol/Hydrochlorothiazide [Bisoprolol/Hctz 5-6 .25 Mg] 1 tab PO DAILY [facility] Last Admin: 12/04/17 08:05 Dose: 1 tab Ptom Cinnamon Bark [Cinnamon] 1, 000 Mg 1,000 mg PO BID [facility] Last Admin: 12/04/17 08:05 Dose: 1,000 mg Oxyquinoline Sulfate (Bag [place] Oint) 1 oz TOP Q6H PRN PRN Reason: Other Last Admin: 11/26/17 19:41 Dose: 1 applic Polyethylene Glycol (Miralax) 17 gm PO DAILY PRN PRN Reason: Constipation Simvastatin (Zocor) 10 mg PO DAILY [facility] Last Admin: 12/04/17 08:06 Dose: 10 mg Discontinued Medications Bisacodyl (Dulcolax) 10 mg RECTAL ONETIME ONE Stop: 11/21/17 09:03 Last Admin: 11/21/17 09:27 Dose: 10 mg Insulin Detemir (Levemir) 14 unit SUBCUT BEDTIME [facility] - Exam General: Reports: Alert, Oriented Neck: Reports: Supple Lungs: Reports: Clear to Auscultation, Normal Respiratory Effort Cardiovascular: Reports: Regular Rate, Regular Rhythm GI/Abdominal Exam: Normal Bowel Sounds, Soft, Non-Tender, No Organomegaly, No Distention, No Abnormal Bruit, No Mass, Pelvis Stable Extremities: Normal Inspection, Non-Tender, No Pedal Edema, Normal Capillary Refill, Limited Range of Motion (Left lower extremity) Skin: Reports: Warm, Dry, Intact Neurological: Reports: No New Focal Deficit Psy/Mental Status: Reports: Alert, Normal Affect, Normal Mood
== END 2017-12-04 14:00 | disposition home health service (06) | DRG 561 ==
LOC: CC.MS 11:27
PROVIDERS: ADMIT General Practice; ATTEND General Practice
DX: S32.592D Other specified fracture of left pubis, subsequent encounter for fracture with routine healing (principal); W18.30XD Fall on same level, unspecified, subsequent encounter; I10 Essential (primary) hypertension; E11.9 Type 2 diabetes mellitus without complications; Y93.89 Activity, other specified; E87.6 Hypokalemia; Z86.73 Personal history of transient ischemic attack (TIA), and cerebral infarction without residual deficits; Z79.899 Other long term (current) drug therapy; Z79.82 Long term (current) use of aspirin; Z79.84 Long term (current) use of oral hypoglycemic drugs; Z96.642 Presence of left artificial hip joint
CPT/HCPCS: 82962; 97110-GP; 97530-GP; A9270-GY; J1650; J1815-GY

== ENCOUNTER → 2018-05-01 | Day surgery (SDC) | payer MEDICARE, BC ==
[~2018-05-01] MED LIST: Lactated Ringers 1,000 ML IV SCH; Propofol 200 MG/20 ML SDV IV ONE
[2018-05-01 10:55] VITALS: BP 135/68
--- NOTE | 2018-05-01 12:54 | OR ---
DATE OF OPERATION: 05/01/2018 PREOPERATIVE DIAGNOSIS: POSITIVE COLOGUARD. POSTOPERATIVE DIAGNOSIS: POSITIVE COLOGUARD. SURGEON: Don Natarajan MD PROCEDURE: FULL-LENGTH COLONOSCOPY WITH SNARE POLYPECTOMY X2. ANESTHESIA: WORKDAY MANAGER. COMPLICATIONS: None. SPECIMEN: Villous adenoma x2 cecum, rectum. RECOMMENDATIONS: The patient had an extremely poor prep. Would recommend a 3-6 month followup to ensure complete visualization as at least half this colon could not be observed. INDICATIONS: The patient was in for a physical, elected to have a Cologuard instead of a routine colonoscopy. It was positive. Naty Josue sent in for procedure. DESCRIPTION OF PROCEDURE: The patient was prepped and draped, placed in the left lateral decubitus position. A lubricated Olympus colonoscope was inserted and easily advanced to the cecum. Direct visualization of the ileocecal valve and appendiceal orifice were accomplished. The bowel prep was extremely poor. The patient had many areas throughout the colon that were loaded with stool, liquid and solid. It was impossible to suction all this as our scope kept getting plugged. We filled 3 suction canisters with stool. In the cecal pouch, the patient did have a small flat villous adenoma removed with a snare and suctioned into polyp trap. No other obvious lesions could be seen in the ascending, transverse, or descending colon. The sigmoid area was especially difficult to visualize due to the poor prep. There was stool throughout, some of these areas could be suctioned, many not. When we got in the rectal vault, there was so much stool, it was hard to see. We were able to retroflex after multiple attempts at suctioning and it looked like there was another villous lesion closer to the anus. We were able to get that with a snare and unfortunately bled for quite a while. We cauterized the area and we got minimal trickling of blood. At this time, we are going to leave it and assume it will clot on its own. Air was suctioned, scope was removed without complication. LEOBARDO/ABDULKADIR /[id number]
== END ==
LOC: CC.SDS 08:04
PROVIDERS: ATTEND Family Medicine
DX: R19.5 Other fecal abnormalities (principal); D12.0 Benign neoplasm of cecum; D12.8 Benign neoplasm of rectum; M19.90 Unspecified osteoarthritis, unspecified site; N40.0 Benign prostatic hyperplasia without lower urinary tract symptoms; E78.5 Hyperlipidemia, unspecified; E11.9 Type 2 diabetes mellitus without complications; E55.9 Vitamin D deficiency, unspecified; Z79.4 Long term (current) use of insulin; Z79.82 Long term (current) use of aspirin; Z79.899 Other long term (current) drug therapy
CPT/HCPCS: 45385; 82962; J2704; J7120; 00811; 88305

== ENCOUNTER → 2018-11-06 | Day surgery (SDC) | payer MEDICARE, BC ==
[~2018-11-06] MED LIST changes: -Lactated Ringers 1,000 ML IV SCH
[2018-11-06] MEDS: Lactated Ringers 1,000 ML IV SCH (08:19)
[2018-11-06 09:56] VITALS: BP 142/85
--- NOTE | 2018-11-06 12:03 | OR ---
DATE OF OPERATION: 11/06/2018 PREOPERATIVE DIAGNOSIS: 1. POSITIVE COLOGUARD. 2. HISTORY OF POLYPS. POSTOPERATIVE DIAGNOSIS: 1. POSITIVE COLOGUARD. 2. HISTORY OF POLYPS. SURGEON: Don Natarajan MD PROCEDURE: DIAGNOSTIC COLONOSCOPY. ANESTHESIA: MAC via RESHIPPING CLERK. COMPLICATIONS: None. SPECIMEN: None. FINDINGS: 1. No signs of polyp recurrence. 2. Extremely poor bowel prep. RECOMMENDATIONS: Plan routine colonoscopy followup in 3 years. INDICATIONS: Mr. Van is a 78-year-old, originally seen 6 months ago for a colonoscopy due to a positive Cologuard. He had 2 polyps removed, but had very poor prep at that time, had multiple canisters of stool removed, and visualization was very poor. We tried a longer better prep on him and he is in for a followup scope now. DESCRIPTION OF PROCEDURE: The patient was prepped and draped, placed in the left lateral decubitus position. A lubricated Olympus colonoscope was inserted and once again with difficulty advanced to the cecum. This gentleman again had a poor prep. He had a lot of residual stool throughout the colon. Most of this could be suctioned. We were able to certainly visualize much better than his last one, but there were areas we just could not irrigate and suction all the stool from his colon. The cecum was again difficult to see as were portions of the right colon, but no gross abnormalities were seen. Throughout the length of the colon, I could find no further polyps, mass, ulceration, or bleeding sites. No vascular abnormalities or signs of colitis. In and all, we suctioned about 2000 mL of stool and we were able to get a reasonable evaluation of his colon. There were certainly areas that could not be visualized and documented by picture, some of the areas just had too much and too solid a stool still present in his colon. Most areas we were able to irrigate and suction enough to visualize adequately, certainly smaller lesions could be missed. Nevertheless, the patient tolerated the procedure well. Air was suctioned. We did retroflex in the rectum and no gross perianal lesions were seen. The patient was stable in the recovery room. LEOBARDO/ABDULKADIR /[id number]
== END ==
LOC: CC.SDS 07:59
PROVIDERS: ATTEND Family Medicine
DX: R19.5 Other fecal abnormalities (principal); Z86.010 Personal history of colon polyps; N40.0 Benign prostatic hyperplasia without lower urinary tract symptoms; E78.5 Hyperlipidemia, unspecified; I10 Essential (primary) hypertension; E11.9 Type 2 diabetes mellitus without complications; Z86.73 Personal history of transient ischemic attack (TIA), and cerebral infarction without residual deficits; Z79.82 Long term (current) use of aspirin; Z79.4 Long term (current) use of insulin; Z86.69 Personal history of other diseases of the nervous system and sense organs
CPT/HCPCS: 45378; J2704; J7120; G0121

== ENCOUNTER 2020-06-19 10:45 | Emergency (ER) | payer MEDICARE, BC ==
[2020-06-19 11:02] VITALS: BP 157/77; PULSE 79
--- NOTE | 2020-06-19 12:04 | EDM.PDOC ---
ED HPI GENERAL MEDICAL PROBLEM - General Chief Complaint: General Stated Complaint: AMBULANCE Time Seen by Provider: 06/19/20 11:30 Source of Information: Reports: Patient, RN History Limitations: Reports: No Limitations - History of Present Illness INITIAL COMMENTS - FREE TEXT/NARRATIVE: pt states that he was trying to get out of his chair when he slipped and landed on the floor. He was not able to get up with 's help. She thought his hip looked deformed so called EMS. He denies any other injuries. When I evaluated him he denied any pain to the right hip. No open areas or bruising noted and he was able to move hip without any discomfort. Pt was sent for xray's. Onset: Sudden Onset Date: 06/19/20 Location: Reports: Lower Extremity, Left Left Hip Pain Score (Numeric/FACES): 1 - Related Data Allergies Allergy/AdvReac Type Severity Reaction Status Date / Time No Known Allergies Allergy Verified 06/19/20 11:10 Home Meds: Home Meds Aspirin [Low Dose Aspirin EC] 81 mg PO DAILY 06/21/14 [History] Folic Acid 0.4 mg PO DAILY 06/21/14 [History] Hydrochlorothiazide 25 mg PO DAILY 06/21/14 [History] Simvastatin 10 mg PO DAILY 06/21/14 [History] amLODIPine [Norvasc] 10 mg PO DAILY 06/21/14 [History] cloNIDine [Catapres] 0.1 mg PO BEDTIME 06/21/14 [History] levETIRAcetam [Levetiracetam] 750 mg PO BID 06/21/14 [History] metFORMIN [Glucophage] 500 mg PO BID 06/21/14 [History] Potassium Chloride 10 meq PO DAILY 06/19/20 [History] Past Medical History Cardiovascular History: Reports: Hypertension Neurological History: Reports: CVA, Seizure Endocrine/Metabolic History: Reports: Diabetes, Type II Social & Family History - Family History Family Medical History: No Pertinent Family History - Tobacco Use Tobacco Use Status *Q: Never Tobacco User - Caffeine Use Caffeine Use: Reports: Tea - Recreational Drug Use Recreational Drug Use: No - Living Situation & Occupation Living situation: Reports: , with Spouse Occupation: Retired ED ROS GENERAL - Review of Systems Review Of Systems: See Below Constitutional: Reports: No Symptoms HEENT: Reports: No Symptoms Respiratory: Reports: No Symptoms Cardiovascular: Reports: No Symptoms GI/Abdominal: Reports: No Symptoms Musculoskeletal: Reports: Other (see HPI) Skin: Reports: No Symptoms. Denies: Bruising, Wound Neurological: Reports: No Symptoms ED EXAM, GENERAL - Physical Exam Exam: See Below Exam Limited By: No Limitations General Appearance: Alert, WD/WN, No Apparent Distress Neck: Normal Inspection, Supple, Non-Tender Respiratory/Chest: No Respiratory Distress, Lungs Clear, Normal Breath Sounds Cardiovascular: Normal Peripheral Pulses, Regular Rate, Rhythm GI/Abdominal: Normal Bowel Sounds, Soft, Non-Tender Back Exam: Normal Inspection Extremities: Normal Inspection, Normal Range of Motion, Non-Tender (I am able to go through complete ROM to the left hip without any discomfort. We then got him to standing position and he was able to stand and walk on the leg without any discomfort. NO deformity noted that was concerned about. No bruising or open areas noted.), No Pedal Edema, Normal Capillary Refill Neurological: Alert, Oriented Skin Exam: Warm, Dry, Intact Course - Vital Signs Last Recorded V/S: Last Vital Signs Temp 96.8 F L 06/19/20 10:50 Pulse 79 06/19/20 10:50 Resp 20 06/19/20 10:50 BP 157/77 H 06/19/20 10:50 Pulse Ox 97 06/19/20 10:50 - Re-Assessments/Exams Free Text/Narrative Re-Assessment/Exam: 06/19/20 1150 xray results discussed with and pt. Will discharge at this time. Departure - Departure Time of Disposition: 12:03 Disposition: Home, Self-Care 01 Condition: Good Clinical Impression: Fall at home Qualifiers: Encounter type: initial encounter Qualified Code(s): W19.XXXA - Unspecified fall, initial encounter - Discharge Information *PRESCRIPTION DRUG MONITORING PROGRAM REVIEWED*: Not Applicable *COPY OF PRESCRIPTION DRUG MONITORING REPORT IN PATIENT ROBERT: Not Applicable Referrals: Nichelle Leon PA-C [Primary Care Provider] - Forms: ED Department Discharge Additional Instructions: May weight bear as needed recheck if any new concerns. Sepsis Event Note (ED) - Evaluation Sepsis Screening Result: No Definite Risk - Problem List & Annotations (1) Fall at home SNOMED Code(s): 23679898 Code(s): W19.XXXA - UNSPECIFIED FALL, INITIAL ENCOUNTER; Y92.009 - UNSP PLACE IN UNSP NON-INSTITUT (PRIVATE) RESIDENCE PLACE Status: Acute Priority: High Qualifiers: Encounter type: initial encounter Qualified Code(s): W19.XXXA - Unspecified fall, initial encounter; Y92.009 - Unspecified place in unspecified non-instit utional (private) residence as the place of occurrence of the external cause - Problem List Review Problem List Initiated/Reviewed/Updated: Yes
== END 2020-06-19 12:20 | disposition home or self-care (01) ==
LOC: CC.ED 10:45
DX: M25.552 Pain in left hip (principal); I10 Essential (primary) hypertension; E11.9 Type 2 diabetes mellitus without complications; R56.9 Unspecified convulsions; Z79.899 Other long term (current) drug therapy; Z79.82 Long term (current) use of aspirin; W07.XXXA Fall from chair, initial encounter; Y92.009 Unspecified place in unspecified non-institutional (private) residence as the place of occurrence of the external cause
CPT/HCPCS: 99283-25

== ENCOUNTER → 2021-11-16 | Day surgery (SDC) | payer MEDICARE, BC ==
[~2021-11-16] MED LIST changes: +Phenylephrine 1% 10 MG/ML SDV ONE; -Propofol 200 MG/20 ML SDV IV ONE; +Propofol 200 MG/20 ML SDV ONE; +ePHEDrine 50 MG/ML SDV ONE; +fentaNYL 100 MCG/2 ML SDV ONE
[2021-11-16] MEDS: Lactated Ringers 1,000 ML IV SCH (07:54)
[2021-11-16 09:19] VITALS: BP 138/71; PULSE 61
== END ==
LOC: CC.SDS 07:22
PROVIDERS: ATTEND Family Medicine
DX: Z12.11 Encounter for screening for malignant neoplasm of colon (principal); N40.0 Benign prostatic hyperplasia without lower urinary tract symptoms; E78.5 Hyperlipidemia, unspecified; I10 Essential (primary) hypertension; M81.0 Age-related osteoporosis without current pathological fracture; E11.9 Type 2 diabetes mellitus without complications; Z86.010 Personal history of colon polyps; Z86.73 Personal history of transient ischemic attack (TIA), and cerebral infarction without residual deficits; Z79.899 Other long term (current) drug therapy; Z79.82 Long term (current) use of aspirin; Z79.4 Long term (current) use of insulin; Z79.84 Long term (current) use of oral hypoglycemic drugs; Z98.890 Other specified postprocedural states
CPT/HCPCS: J2370; J2704; J3010; J7120

== ENCOUNTER 2022-10-29 21:19 | Emergency (ER) | payer MEDICARE, BC ==
[2022-10-29 21:40] VITALS: BP 156/92; PULSE 80
== END 2022-10-29 22:10 | disposition home or self-care (01) ==
LOC: CC.ED 21:19 → SUPCPDRO 21:19 → CC.ED 22:10
DX: S20.211A Contusion of right front wall of thorax, initial encounter (principal); M62.830 Muscle spasm of back; I10 Essential (primary) hypertension; E11.9 Type 2 diabetes mellitus without complications; Z79.82 Long term (current) use of aspirin; Z79.84 Long term (current) use of oral hypoglycemic drugs; Z79.899 Other long term (current) drug therapy; W18.30XA Fall on same level, unspecified, initial encounter; Y93.01 Activity, walking, marching and hiking
CPT/HCPCS: 99283

== ENCOUNTER 2023-07-06 12:52 | Inpatient (IN) | payer BC, MEDICARE | END 2023-07-07 12:45 | disposition home or self-care (01) | DRG 951 | LOC: CC.MS 12:52 | PROVIDERS: ADMIT Nurse Practitioner Family; ATTEND Nurse Practitioner Family | DX: Z75.5 Holiday relief care (principal); Z86.73 Personal history of transient ischemic attack (TIA), and cerebral infarction without residual deficits ==

== ENCOUNTER 2024-03-21 11:37 | Inpatient (IN) | payer MEDICARE, BC ==
[2024-03-21] MEDS ORDERED: Sodium Chloride 0.9% 10 ML Syringe FLUSH PRN (11:53)
[2024-03-21] MEDS: Sodium Chloride 0.9% 1,000 ML IV ONE (12:11)
[2024-03-21] MEDS: Ondansetron 4 MG/2 ML SDV IVPUSH STA (12:11)
[2024-03-21 12:57] LABS: APPEARANCE,URINE CLEAR (CLEAR); BASOPHILS ABSOLUTE AUTO 0.01 10^3/uL (0.00-0.50); BASOPHILS PERCENT AUTO 0.2 % (0-1); BILIRUBIN,URINE NEGATIVE (NEGATIVE); COLOR,URINE YELLOW (YELLOW); GLUCOSE,URINE 100 mg/dL (NEGATIVE); HEMATOCRIT 37.9 % (42.0-52.0); IMMATURE GRAN ABSOLUTE AUTO 0.04 10^3/uL (0.00-0.49); IMMATURE GRAN PERCENT AUTO 0.6 % (0.0-4.9); KETONES,URINE NEGATIVE (NEGATIVE); LEUKOCYTE ESTERASE,URINE NEGATIVE (NEGATIVE); LYMPHOCYTES ABSOLUTE AUTO 0.57 10^3/uL (0.60-5.00); LYMPHOCYTES PERCENT AUTO 8.8 % (24-44); MEAN CORPUSCULAR HEMOGLOBIN 30.2 pg (27.0-32.0); MEAN CORPUSCULAR HGB CONC 34.3 g/dL (32.0-36.0); MEAN CORPUSCULAR VOLUME 88.1 fL (83.0-97.0); MONOCYTES ABSOLUTE AUTO 0.93 10^3/uL (0.00-1.50); MONOCYTES PERCENT AUTO 14.3 % (0-10); NEUTROPHILS ABSOLUTE AUTO 4.96 x10^3/uL (1.80-8.00); NEUTROPHILS PERCENT AUTO 76.1 % (41-71); NITRITE,URINE NEGATIVE (NEGATIVE); OCCULT BLOOD,URINE SMALL (NEGATIVE); PH,URINE 5.5 (4.5-8.0); PLATELET COUNT,PLT 173 10^3/uL (150-400); PROTEIN,URINE 100 mg/dL (NEGATIVE); UROBILINOGEN,URINE 0.2 EU/dL (0.2-1.0); WHITE BLOOD CELL COUNT,WBC 6.5 10^3/uL (4.0-11.0)
[2024-03-21 13:03] LABS: BACTERIA,URINE OCCASIONAL /HPF (NOT SEEN); EPITHELIAL CELLS,URINE NOT SEEN /HPF (NOT SEEN); MUCUS,URINE FEW /HPF (NOT SEEN); RBC,URINE 0-5 /HPF (0-5); WBC,URINE NOT SEEN /HPF (0-5)
[2024-03-21 13:11] LABS: LACTIC ACID 1.2 mmol/L (0.4-2.0)
[2024-03-21 13:18] LABS: ALBUMIN 3.2 g/dL (3.4-5.0); BILIRUBIN TOTAL 0.4 mg/dL (0.0-1.0); C-REACTIVE PROTEIN 3.37 mg/dL (<=0.50); CALCIUM 9.7 mg/dL (8.4-10.1); CREATININE 1.1 mg/dL (0.7-1.3); EST CRCL DRUG DOSING (CG) 63.57 mL/min; POTASSIUM,K 3.6 mEq/L (3.5-5.0); PROTEIN TOTAL,TP 6.8 g/dL (6.4-8.2)
[2024-03-21 13:28] LABS: INR 0.99 (0.92-1.18); PROTHROMBIN TIME 10.4 SEC (9.3-11.3); PTT,PARTIAL THROMBOPLSTIN TIME 30.4 SEC (20.0-30.0)
[2024-03-21 13:30] LABS: INFLUENZA A NAA NEGATIVE (NEGATIVE); INFLUENZA B NAA NEGATIVE (NEGATIVE); RESPIRATORY SYNCYTIAL VIR NAA NEGATIVE (NEGATIVE)
[2024-03-21 13:31] LABS: CORONAVIRUS COVID-19 NAA POSITIVE (NEGATIVE)
[2024-03-21] MEDS ORDERED: Acetaminophen 650 MG Supp RECTAL PRN (15:40)
[2024-03-21] MEDS ORDERED: Acetaminophen 325 MG Tab PO PRN (15:40)
[2024-03-21] MEDS ORDERED: Ondansetron 4 MG/2 ML SDV IV PRN (15:40)
[2024-03-21] MEDS ORDERED: Morphine 2 MG/ML SYRINGE IVPUSH PRN (15:40)
[2024-03-21] MEDS ORDERED: Ondansetron 4 MG Tab.DIS PO PRN (15:40)
[2024-03-21] MEDS: Nirmatrelvir/Ritonavir 300 MG/100 MG Dosepak PO SCH (16:33)
[2024-03-21] MEDS: Sodium Chloride 0.9% 1,000 ML IV SCH (16:33)
[2024-03-21] MEDS: Insulin Glarg,Human.Rec.Analog 100 Unit/ML 10 ML Vial SUBCUT SCH (20:17)
[2024-03-21] MEDS: metFORMIN 500 MG Tab PO SCH (20:26)
[2024-03-21] MEDS: cloNIDine 0.1 MG Tab PO SCH (20:27)
[2024-03-21] MEDS: Lisinopril 20 MG Tab PO SCH (20:28)
[2024-03-21] MEDS: levETIRAcetam 500 MG Tab PO SCH (20:30)
[2024-03-22 07:48] LABS: BASOPHILS ABSOLUTE AUTO 0.02 10^3/uL (0.00-0.50); BASOPHILS PERCENT AUTO 0.2 % (0-1); HEMOGLOBIN 12.8 g/dL (14.0-18.0); IMMATURE GRAN ABSOLUTE AUTO 0.04 10^3/uL (0.00-0.49); IMMATURE GRAN PERCENT AUTO 0.5 % (0.0-4.9); LYMPHOCYTES ABSOLUTE AUTO 0.79 10^3/uL (0.60-5.00); LYMPHOCYTES PERCENT AUTO 9.1 % (24-44); MEAN CORPUSCULAR HEMOGLOBIN 30.5 pg (27.0-32.0); MEAN CORPUSCULAR HGB CONC 34.6 g/dL (32.0-36.0); MEAN CORPUSCULAR VOLUME 88.1 fL (83.0-97.0); MONOCYTES ABSOLUTE AUTO 1.14 10^3/uL (0.00-1.50); MONOCYTES PERCENT AUTO 13.2 % (0-10); NEUTROPHILS ABSOLUTE AUTO 6.67 x10^3/uL (1.80-8.00); PLATELET COUNT,PLT 174 10^3/uL (150-400); WHITE BLOOD CELL COUNT,WBC 8.7 10^3/uL (4.0-11.0)
[2024-03-22] MEDS: Aspirin 81 MG Tab.EC PO SCH (07:57)
[2024-03-22] MEDS: Potassium Chloride 10 MEQ Tab.ER PO SCH (07:57)
[2024-03-22] MEDS: Cholecalciferol (Vitamin D3) 5,000 UNIT Tab PO SCH (07:58)
[2024-03-22] MEDS: Hydrochlorothiazide 25 MG Tab PO SCH (07:59)
[2024-03-22] MEDS: Magnesium Oxide 400 MG Tab PO SCH (08:00)
[2024-03-22] MEDS: amLODIPine 10 MG Tab PO SCH (08:03)
[2024-03-22 08:04] LABS: ALBUMIN 2.7 g/dL (3.4-5.0); BILIRUBIN TOTAL 0.4 mg/dL (0.0-1.0); C-REACTIVE PROTEIN 7.58 mg/dL (<=0.50); CALCIUM 8.9 mg/dL (8.4-10.1); EST CRCL DRUG DOSING (CG) 69.92 mL/min; POTASSIUM,K 3.1 mEq/L (3.5-5.0); PROTEIN TOTAL,TP 6.3 g/dL (6.4-8.2)
[2024-03-22] MEDS: Enoxaparin 40 MG/0.4 ML Syringe SUBCUT SCH (12:42)
[2024-03-22] MEDS: Potassium Chloride 20 MEQ Tab.ER PO ONE (12:43)
[2024-03-22] MEDS: Potassium Chloride 20 MEQ Tab.ER ONE (13:29)
[2024-03-23 07:29] LABS: BASOPHILS ABSOLUTE AUTO 0.03 10^3/uL (0.00-0.50); BASOPHILS PERCENT AUTO 0.4 % (0-1); EOSINOPHILS ABSOLUTE AUTO 0.09 10^3/uL (0.00-1.50); EOSINOPHILS PERCENT AUTO 1.2 % (0-6); HEMOGLOBIN 12.6 g/dL (14.0-18.0); IMMATURE GRAN ABSOLUTE AUTO 0.02 10^3/uL (0.00-0.49); IMMATURE GRAN PERCENT AUTO 0.3 % (0.0-4.9); LYMPHOCYTES PERCENT AUTO 17.3 % (24-44); MEAN CORPUSCULAR HEMOGLOBIN 30.1 pg (27.0-32.0); MEAN CORPUSCULAR HGB CONC 34.1 g/dL (32.0-36.0); MEAN CORPUSCULAR VOLUME 88.3 fL (83.0-97.0); MONOCYTES ABSOLUTE AUTO 1.12 10^3/uL (0.00-1.50); MONOCYTES PERCENT AUTO 14.9 % (0-10); NEUTROPHILS ABSOLUTE AUTO 4.97 x10^3/uL (1.80-8.00); NEUTROPHILS PERCENT AUTO 65.9 % (41-71); PLATELET COUNT,PLT 194 10^3/uL (150-400); RED BLOOD CELL COUNT 4.19 x10^6/uL (4.50-6.00); WHITE BLOOD CELL COUNT,WBC 7.5 10^3/uL (4.0-11.0)
[2024-03-23 07:34] LABS: ALBUMIN 2.7 g/dL (3.4-5.0); BILIRUBIN TOTAL 0.4 mg/dL (0.0-1.0); C-REACTIVE PROTEIN 8.37 mg/dL (<=0.50); CREATININE 0.9 mg/dL (0.7-1.3); EST CRCL DRUG DOSING (CG) 77.69 mL/min; POTASSIUM,K 3.1 mEq/L (3.5-5.0); PROTEIN TOTAL,TP 6.3 g/dL (6.4-8.2)
[2024-03-23] MEDS: Potassium Chloride 10 MEQ Tab.ER PO ONE (09:44)
[2024-03-23] MEDS: Magnesium Sulfate/Water Premix 2 GM in Premix Bag 1 BAG IV ONE (09:44)
[2024-03-23] MEDS: Potassium Chloride Riders 20 MEQ in Premix Bag 1 BAG IV ONE (09:45)
[2024-03-23] MEDS: Sodium Chloride 0.9% 500 ML IV ONE (11:26)
[2024-03-24 07:56] LABS: ALBUMIN 2.6 g/dL (3.4-5.0); BILIRUBIN TOTAL 0.4 mg/dL (0.0-1.0); C-REACTIVE PROTEIN 6.54 mg/dL (<=0.50); CALCIUM 9.2 mg/dL (8.4-10.1); EST CRCL DRUG DOSING (CG) 69.92 mL/min; PROTEIN TOTAL,TP 6.2 g/dL (6.4-8.2)
[2024-03-24 08:11] LABS: BASOPHILS ABSOLUTE AUTO 0.02 10^3/uL (0.00-0.50); BASOPHILS PERCENT AUTO 0.3 % (0-1); EOSINOPHILS ABSOLUTE AUTO 0.08 10^3/uL (0.00-1.50); EOSINOPHILS PERCENT AUTO 1.4 % (0-6); HEMATOCRIT 35.1 % (42.0-52.0); IMMATURE GRAN ABSOLUTE AUTO 0.02 10^3/uL (0.00-0.49); IMMATURE GRAN PERCENT AUTO 0.3 % (0.0-4.9); LYMPHOCYTES ABSOLUTE AUTO 1.41 10^3/uL (0.60-5.00); MEAN CORPUSCULAR HEMOGLOBIN 30.3 pg (27.0-32.0); MEAN CORPUSCULAR HGB CONC 34.2 g/dL (32.0-36.0); MEAN CORPUSCULAR VOLUME 88.6 fL (83.0-97.0); MONOCYTES ABSOLUTE AUTO 0.79 10^3/uL (0.00-1.50); MONOCYTES PERCENT AUTO 13.5 % (0-10); NEUTROPHILS ABSOLUTE AUTO 3.55 x10^3/uL (1.80-8.00); NEUTROPHILS PERCENT AUTO 60.5 % (41-71); PLATELET COUNT,PLT 228 10^3/uL (150-400); RED BLOOD CELL COUNT 3.96 x10^6/uL (4.50-6.00); WHITE BLOOD CELL COUNT,WBC 5.9 10^3/uL (4.0-11.0)
[2024-03-24 08:22] VITALS: BP 147/73
[2024-03-24 09:41] VITALS: PULSE 82
[2024-03-24] MEDS ORDERED: Potassium Chloride 20 MEQ Tab.ER PO ONE (10:45)
[2024-03-24] MEDS ORDERED: Potassium Chloride 20 MEQ Tab.ER PO SCH (20:00)
[2024-03-25] MEDS ORDERED: Magnesium Oxide 400 MG Tab PO SCH (08:00)
== END 2024-03-24 10:55 | disposition home or self-care (01) | DRG 179 ==
LOC: CC.ED 11:37 → UNDOADMIN 14:27 → CC.MS 14:27
PROVIDERS: ADMIT Nurse Practitioner Family; ATTEND Nurse Practitioner Family
DX: U07.1 COVID-19 (principal); R41.82 Altered mental status, unspecified; I10 Essential (primary) hypertension; R11.10 Vomiting, unspecified; R50.9 Fever, unspecified; E11.9 Type 2 diabetes mellitus without complications; E86.0 Dehydration; E87.6 Hypokalemia; Z79.4 Long term (current) use of insulin; Z86.73 Personal history of transient ischemic attack (TIA), and cerebral infarction without residual deficits; Z79.84 Long term (current) use of oral hypoglycemic drugs; Z99.81 Dependence on supplemental oxygen; Z79.82 Long term (current) use of aspirin; Z79.899 Other long term (current) drug therapy
CPT/HCPCS: 0241U; 36415; 70450; 71045; 80053; 81001; 82947; 83605; 83735; 84484; 85025; 85610; 85730; 86140; 87040; 93005; 93010; 94761; 96361; 96374; 97110-GP; 97161-GP; 97530-GP; 99285-25; A6212; A9270-GY; J1650; J1815-GY; J2405; J3475; J3480; J7030; J7040

== ENCOUNTER 2024-03-24 11:10 | Inpatient (IN) | payer MEDICARE, BC ==
[2024-03-24] MEDS ORDERED: Morphine 2 MG/ML SYRINGE IVPUSH PRN (11:14)
[2024-03-24] MEDS ORDERED: Acetaminophen 650 MG Supp RECTAL PRN (11:14)
[2024-03-24] MEDS ORDERED: Acetaminophen 325 MG Tab PO PRN (11:14)
[2024-03-24] MEDS ORDERED: Glucagon,Human Recombinant 1 MG Vial IM PRN (11:14)
[2024-03-24] MEDS ORDERED: 50% Dextrose in Water 50 ML Syringe IVPUSH PRN (11:14)
[2024-03-24] MEDS ORDERED: Sodium Chloride 0.9% 10 ML Syringe FLUSH PRN ×2 (11:14)
[2024-03-24] MEDS ORDERED: Ondansetron 4 MG/2 ML SDV IV PRN (11:14)
[2024-03-24] MEDS ORDERED: Ondansetron 4 MG Tab.DIS PO PRN (11:14)
[2024-03-24] MEDS: Potassium Chloride 20 MEQ Tab.ER PO ONE (12:07)
[2024-03-24] MEDS: Enoxaparin 40 MG/0.4 ML Syringe SUBCUT SCH (12:08)
[2024-03-24] MEDS: metFORMIN 500 MG Tab PO SCH (17:32)
[2024-03-24] MEDS: Potassium Chloride 20 MEQ Tab.ER PO SCH (17:33)
[2024-03-24] MEDS: levETIRAcetam 500 MG Tab PO SCH (19:26)
[2024-03-24] MEDS: Nirmatrelvir/Ritonavir 300 MG/100 MG Dosepak PO SCH (19:34)
[2024-03-24] MEDS: Insulin Glarg,Human.Rec.Analog 100 Unit/ML 10 ML Vial SUBCUT SCH (19:46)
[2024-03-24] MEDS: cloNIDine 0.1 MG Tab PO SCH (19:47)
[2024-03-24] MEDS: Lisinopril 20 MG Tab PO SCH (19:47)
[2024-03-25 07:26] LABS: CALCIUM 8.9 mg/dL (8.4-10.1); CREATININE 0.8 mg/dL (0.7-1.3); EST CRCL DRUG DOSING (CG) 87.4 mL/min; MAGNESIUM 1.5 mg/dL (1.8-2.4); POTASSIUM,K 3.4 mEq/L (3.5-5.0)
[2024-03-25] MEDS: Aspirin 81 MG Tab.EC PO SCH (07:57)
[2024-03-25] MEDS: Magnesium Oxide 400 MG Tab PO SCH (07:58)
[2024-03-25] MEDS: Cholecalciferol (Vitamin D3) 5,000 UNIT Tab PO SCH (07:58)
[2024-03-25] MEDS: amLODIPine 10 MG Tab PO SCH (08:39)
[2024-03-25] MEDS: Hydrochlorothiazide 25 MG Tab PO SCH (08:40)
[2024-03-25] MEDS: Nystatin Topical Powder 15 GM Bottle TOP SCH (20:08)
[2024-03-26] MEDS: LORazepam 0.5 MG Tab PO PRN (00:47)
[2024-03-26 07:50] LABS: CALCIUM 9.3 mg/dL (8.4-10.1); CREATININE 0.9 mg/dL (0.7-1.3); EST CRCL DRUG DOSING (CG) 77.69 mL/min; POTASSIUM,K 3.6 mEq/L (3.5-5.0)
[2024-03-29 08:28] VITALS: BP 144/95
[2024-03-29 12:32] VITALS: PULSE 64
== END 2024-03-29 16:15 | disposition home or self-care (01) | DRG 947 ==
LOC: UNDOADMIN 11:10 → CC.MS 11:10
PROVIDERS: ADMIT Nurse Practitioner; ATTEND Nurse Practitioner
DX: R53.81 Other malaise (principal); U07.1 COVID-19; R44.3 Hallucinations, unspecified; R53.1 Weakness; E86.0 Dehydration; E87.6 Hypokalemia; R62.7 Adult failure to thrive; R41.0 Disorientation, unspecified; E11.9 Type 2 diabetes mellitus without complications; Z79.4 Long term (current) use of insulin; Z79.82 Long term (current) use of aspirin; Z79.84 Long term (current) use of oral hypoglycemic drugs; Z79.899 Other long term (current) drug therapy; Z68.26 Body mass index [BMI] 26.0-26.9, adult
CPT/HCPCS: 36415; 80048; 83735; 97110-GP; 97530-GP; 99315; A9270-GY; J1650

== ENCOUNTER 2024-11-11 15:00 | Emergency (ER) | payer MEDICARE, BC ==
[2024-11-11 15:23] LABS: BASOPHILS ABSOLUTE AUTO 0.01 10^3/uL (0.00-0.50); BASOPHILS PERCENT AUTO 0.2 % (0-1); EOSINOPHILS ABSOLUTE AUTO 0.18 10^3/uL (0.00-1.50); EOSINOPHILS PERCENT AUTO 2.7 % (0-6); HEMATOCRIT 35.7 % (42.0-52.0); HEMOGLOBIN 12.1 g/dL (14.0-18.0); IMMATURE GRAN ABSOLUTE AUTO 0.04 10^3/uL (0.00-0.49); IMMATURE GRAN PERCENT AUTO 0.6 % (0.0-4.9); LYMPHOCYTES ABSOLUTE AUTO 1.53 10^3/uL (0.60-5.00); LYMPHOCYTES PERCENT AUTO 23.1 % (24-44); MEAN CORPUSCULAR HGB CONC 33.9 g/dL (32.0-36.0); MEAN CORPUSCULAR VOLUME 88.6 fL (83.0-97.0); MONOCYTES ABSOLUTE AUTO 0.62 10^3/uL (0.00-1.50); MONOCYTES PERCENT AUTO 9.4 % (0-10); NEUTROPHILS ABSOLUTE AUTO 4.23 x10^3/uL (1.80-8.00); PLATELET COUNT,PLT 215 10^3/uL (150-400); RED BLOOD CELL COUNT 4.03 x10^6/uL (4.50-6.00); WHITE BLOOD CELL COUNT,WBC 6.6 10^3/uL (4.0-11.0)
[2024-11-11 15:45] LABS: ALBUMIN 3.3 g/dL (3.4-5.0); BILIRUBIN TOTAL 0.4 mg/dL (0.0-1.0); C-REACTIVE PROTEIN 4.49 mg/dL (<=0.50); CALCIUM 9.6 mg/dL (8.4-10.1); CREATININE 1.2 mg/dL (0.7-1.3); EST CRCL DRUG DOSING (CG) 58.27 mL/min; POTASSIUM,K 4.3 mEq/L (3.5-5.0); PROTEIN TOTAL,TP 7.2 g/dL (6.4-8.2); TSH ULTRASENSITIVE 1.27 uIU/mL (0.36-5.60)
[2024-11-11 16:26] VITALS: BP 146/84; PULSE 51
== END 2024-11-11 17:20 ==
LOC: CC.ED 15:00
DX: R00.1 Bradycardia, unspecified (principal); I10 Essential (primary) hypertension; E78.00 Pure hypercholesterolemia, unspecified; E11.9 Type 2 diabetes mellitus without complications; Z86.73 Personal history of transient ischemic attack (TIA), and cerebral infarction without residual deficits; Z79.82 Long term (current) use of aspirin; Z79.899 Other long term (current) drug therapy; Z79.4 Long term (current) use of insulin
CPT/HCPCS: 36415; 80053; 84443; 84484; 85025; 86140; 93005; 99285

== ENCOUNTER 2024-11-17 13:58 | Inpatient (IN) | payer MEDICARE, BC ==
[2024-11-17] MEDS ORDERED: Ondansetron 4 MG Tab.DIS PO PRN (14:15)
[2024-11-17] MEDS: Insulin NPH/Insulin Regular,Human 70-30 100 Units/ML 10 ML Vial SUBCUT SCH (17:17)
[2024-11-17] MEDS: Potassium Chloride 10 MEQ Tab.ER PO SCH (17:17)
[2024-11-17] MEDS: Metoprolol Succinate 100 MG Tab.ER PO SCH (19:34)
[2024-11-18] MEDS: Insulin NPH/Insulin Regular,Human 70-30 100 Units/ML 10 ML Vial SUBCUT SCH (07:53)
[2024-11-18] MEDS: Cholecalciferol (Vitamin D3) 5,000 UNIT Tab PO SCH (07:57)
[2024-11-20] MEDS: Sennosides/Docusate Sodium 50-8.6 MG Tab PO SCH (19:25)
[2024-12-15 20:14] VITALS: PULSE 71
[2024-12-16 13:46] VITALS: BP 148/94
== END 2024-12-16 13:55 | disposition home or self-care (01) | DRG 948 ==
LOC: UNDOADMIN 13:58 → CC.MS 13:58
PROVIDERS: ADMIT Nurse Practitioner Family; ATTEND Nurse Practitioner Family
DX: R53.81 Other malaise (principal); I10 Essential (primary) hypertension; E11.9 Type 2 diabetes mellitus without complications; E78.00 Pure hypercholesterolemia, unspecified; R00.1 Bradycardia, unspecified; Z79.82 Long term (current) use of aspirin; Z79.84 Long term (current) use of oral hypoglycemic drugs; Z79.4 Long term (current) use of insulin; Z79.899 Other long term (current) drug therapy; Z95.0 Presence of cardiac pacemaker; Z86.73 Personal history of transient ischemic attack (TIA), and cerebral infarction without residual deficits; Z85.828 Personal history of other malignant neoplasm of skin; Z90.49 Acquired absence of other specified parts of digestive tract
CPT/HCPCS: 82947; 97110-GP; 97116-GP; 97163-GP; 97530-GP; A9270-GY; J1815-GY